=== PATIENT | male | born 1965 | race Caucasian/White ===

== ENCOUNTER 2016-09-23 13:13 | Inpatient (IN) | payer OTHER ==
[~2016-09-23] VITALS: Ht 180.3 cm; Wt 84.7 kg
--- NOTE | 2016-09-23 14:13 | EMERGENCY ROOM VISIT NOTE ---
History First contact with patient: 13:52 Chief Complaint: OTHER COMPLAINT Stated Complaint: CONFUSION History of Present Illness The patient is a 51 year old male who presents to the Emergency Room with complaints of confusion. He was just incarcerated at [facility] on 09/20 due to parole violation. When admitted there he did not know what medications he was on and therefore none were prescribed until he was seen by a physician which has not yet occurred. He has therefore not had any of his usual medications since 09/19/16. He was sent to the ER due to acute confusion possibly due to high ammonia from his stage 4 liver cirrhosis. He is unsure where he was living previous to going to [facility]. He reports previously being treated with multiple medications including anti-depressants ( Effexor around 300 mg), anti-psychotics (unsure which), Keppra (for petit mal seizures), lactulose and rifaximin (for liver cirrhosis and hyperammonemia). He is unsure where he is right now including which State he is in but recognizes the place as a hospital, he is disorientated to year, date and month. Review of Systems See HPI for pertinent positives & negatives. A total of 10 systems reviewed and were otherwise negative. Past Medical/Surgical History Medical Problems: (1) Abdominal hernia (2) Liver cirrhosis (3) Petit mal epilepsy Surgical Problems: (1) Hx of cholecystectomy Social History Smoking Status: Current Every Day Smoker (0.5 pack/day) Smokeless Tobacco Use: No Alcohol Use: none (previous heavy but none for the past 2 years) Drug Use: none Occupation Status: other (incarcerated at [facility]) Current/Historical Medications No Active Prescriptions or Reported Meds Allergies Coded Allergies: No Known Allergies (Unverified , 09/23/16) Physical Exam Vital Signs Date Time Temp Pulse Resp B/P (MAP) Pulse Ox O2 Delivery O2 Flow Rate FiO2 09/23/16 13:30 Room Air 09/23/16 13:27 61 09/23/16 13:21 37.4 62 16 152/98 98 Physical Exam VITAL SIGNS: were reviewed as above GENERAL: no acute distress, lying in bed SKIN: Warm dry and pink, few bruises but otherwise unremarkable examination, no cellulitis on right lower leg but has superficial peeling of his skin. HEAD: Normocephalic and atraumatic EYES: extraocular muscles intact, pupils equal and reactive to light OROPHARYNX: non erythematous, clear and moist NECK: Supple, no adenopathy or meningismus LUNGS: clear to auscultation, no accessory muscle use HEART: Regular rate and rhythm, heart sounds 1+2, soft systolic murmur LUSB ABDOMEN: Soft, no ascites noted on percussion, bowel sounds normal, mild RUQ pain without guarding or rebound tenderness. BACK: no CVA tenderness, no central spinal tenderness EXTREMITIES: Warm and well perfused, right lower extremity increased swelling and pain compared with left (reports possibly chronic after cellulitis but acute worsening). NEUROLOGICALLY: Awake alert and oriented without focal deficit. Cranial nerves 2 -12 intact. Cerebellar testing is within normal limits. There is no nystagmus. There is no facial droop. Speech is clear. Vision is grossly normal. MUSCULOSKELETAL: Good muscle tone. No evidence of trauma. Extensive finger clubbing noted Medical Decision & Procedures ER Provider Diagnostic Interpretation: SINGLE VIEW CHEST CLINICAL HISTORY: Change in mental status. FINDINGS: An AP, portable, upright chest radiograph is obtained. No prior studies are available for comparison at the time of dictation. The examination is degraded by portable technique and patient rotation. The cardiomediastinal silhouette is unremarkable. The lungs and pleural spaces are clear. No pneumothorax is seen. The bony thorax is grossly intact. IMPRESSION: No active disease in the chest. Electronically signed by: Destin Francisco M.D. 09/23/2016 3:02 PM Dictated Date/Time: 09/23/2016 3:01 PM RIGHT LOWER EXTREMITY VENOUS DOPPLER HISTORY: right calf swelling and pitting edema ?DVT COMPARISON STUDY: None. FINDINGS: There is normal compressibility, flow, and augmentation within the right lower extremity deep venous system. IMPRESSION: No DVT within the right lower extremity Electronically signed by: Jonathon Hale M.D. 09/23/2016 3:51 PM Dictated Date/Time: 09/23/2016 3:51 PM Laboratory Results 09/23/16 14:50 Red Blood Count 3.69, Mean Corpuscular Volume 89.4, Mean Corpuscular Hemoglobin 31.2, Mean Corpuscular Hemoglobin Concent 34.8, Mean Platelet Volume 10.3, Neutrophils (%) (Auto) 59.0, Lymphocytes (%) (Auto) 24.1, Monocytes (%) (Auto) 13.0, Eosinophils (%) (Auto) 2.5, Basophils (%) (Auto) 1.4, Neutrophils # (Auto ) 3.83, Lymphocytes # (Auto) 1.56, Monocytes # (Auto) 0.84, Eosinophils # (Auto ) 0.16, Basophils # (Auto) 0.09 09/23/16 13:55 Test 09/23/16 13:55 09/23/16 14:50 09/23/16 14:54 Prothrombin Time 16.1 SECONDS (9.0-12.0) Prothromb Time International Ratio 1.5 (0.9-1.1) Activated Partial Thromboplast Time 48.3 SECONDS (21.0-31.0) Partial Thromboplastin Ratio 1.9 Anion Gap 4.0 mmol/L (3-11) Est Creatinine Clear Calc Drug Dose 129.6 ml/min Estimated GFR () 125.0 Estimated GFR (Non- 107.9 BUN/Creatinine Ratio 10.9 (10-20) Calcium Level 7.7 mg/dl (8.5-10.1) Phosphorus Level 3.4 mg/dl (2.5-4.9) Magnesium Level 2.0 mg/dl (1.8-2.4) Total Bilirubin 1.2 mg/dl (0.2-1) Direct Bilirubin 0.4 mg/dl (0-0.2) Aspartate Amino Transf (AST/SGOT) 100 U/L (15-37) Alanine Aminotransferase (ALT/SGPT) 51 U/L (12-78) Alkaline Phosphatase 75 U/L (45-117) Total Protein 7.5 gm/dl (6.4-8.2) Albumin 2.1 gm/dl (3.4-5.0) White Blood Count 6.48 K/uL (4.8-10.8) Red Blood Count 3.69 M/uL (4.7-6.1) Hemoglobin 11.5 g/dL (14.0-18.0) Hematocrit 33.0 % (42-52) Mean Corpuscular Volume 89.4 fL (80-100) Mean Corpuscular Hemoglobin 31.2 pg (25-34) Mean Corpuscular Hemoglobin Concent 34.8 g/dl (32-36) Platelet Count 90 K/uL (130-400) Mean Platelet Volume 10.3 fL (7.4-10.4) Neutrophils (%) (Auto) 59.0 % Lymphocytes (%) (Auto) 24.1 % Monocytes (%) (Auto) 13.0 % Eosinophils (%) (Auto) 2.5 % Basophils (%) (Auto) 1.4 % Neutrophils # (Auto) 3.83 K/uL (1.4-6.5) Lymphocytes # (Auto) 1.56 K/uL (1.2-3.4) Monocytes # (Auto) 0.84 K/uL (0.11-0.59) Eosinophils # (Auto) 0.16 K/uL (0-0.5) Basophils # (Auto) 0.09 K/uL (0-0.2) RDW Standard Deviation 48.1 fL (36.4-46.3) RDW Coefficient of Variation 14.8 % (11.5-14.5) Immature Granulocyte % (Auto) 0.0 % Immature Granulocyte # (Auto) 0.00 K/uL (0.00-0.02) Platelet Estimate DECREASED Red Blood Cell Morphology Unremarkable Ammonia 70.0 umol/L (11-32) ECG Indication: altered mental status Rate (beats per minute): 57 Rhythm: sinus bradycardia Findings: no acute ischemic change Comparison ECG Date: no prior available ED Course [place] [facility] [place] Calixto 14:20 Unable to obtain previous records from [facility] or [facility]. No previous medication list available. Discussed patient with [facility] hospitalist (Dr Thayer) after lab results and imaging back for assessment for admission for altered mental state at 16:05 Medical Decision Patient presents with acute confusion with Hx of stage 4 liver cirrhosis. Unfortunately previous records are not available despite contacting [facility], [facility] and [email or web address]. Lab work consistent with liver cirrhosis with elevated AST, PTINR, PTT, low Plt. Ammonia raised at 70. Patient was discussed with [facility] Hospitalist who accepted for further management and recommended CT head given unclear history. [place] Drug Monitoring Program Search Results: patient reviewed within database (last controlled substances prescibed in 2014) Impression Primary Impression: Hepatic encephalopathy Additional Impressions: Hyperammonemia Liver cirrhosis Departure Information Dispostion Being Evaluated By Hospitalist Condition FAIR Prescriptions No Active Prescriptions or Reported Meds Patient Instructions My [facility] Resident Tracking Resident Involvement: Resident Care Provided Care Provided: Adult ED Problem Qualifiers
[2016-09-23 14:30] LABS: BUN/CREATININE RATIO 10.9 (10-20); CALCIUM 7.7 mg/dl (8.5-10.1); CREATININE 0.71 mg/dl (0.60-1.40); POTASSIUM 4.5 mmol/L (3.5-5.1)
[2016-09-23 14:33] LABS: PHOSPHORUS 3.4 mg/dl (2.5-4.9)
[2016-09-23 14:35] LABS: INR 1.5 (0.9-1.1); PARTIAL THROMBOPLASTIN RATIO 1.9; PROTHROMBIN TIME (PATIENT) 16.1 SECONDS (9.0-12.0)
--- NOTE | 2016-09-23 15:03 | DIAGNOSTIC IMAGING REPORT ---
SINGLE VIEW CHEST CLINICAL HISTORY: Change in mental status. FINDINGS: An AP, portable, upright chest radiograph is obtained. No prior studies are available for comparison at the time of dictation. The examination is degraded by portable technique and patient rotation. The cardiomediastinal silhouette is unremarkable. The lungs and pleural spaces are clear. No pneumothorax is seen. The bony thorax is grossly intact. IMPRESSION: No active disease in the chest. Electronically signed by: Destin Francisco M.D. 09/23/2016 3:02 PM Dictated Date/Time: 09/23/2016 3:01 PM
[2016-09-23 15:20] LABS: MEAN CELL VOLUME 89.4 fL (80-100); MEAN CORPUSCULAR HEMOGLOBIN 31.2 pg (25-34); MEAN CORPUSCULAR HGB CONC 34.8 g/dl (32-36); MEAN PLATELET VOLUME 10.3 fL (7.4-10.4); PLATELET COUNT 90 K/uL (130-400); RED BLOOD COUNT 3.69 M/uL (4.7-6.1); WHITE BLOOD COUNT 6.48 K/uL (4.8-10.8)
[2016-09-23 15:21] LABS: BASO % 1.4 %; BASO ABS # 0.09 K/uL (0-0.2); COMPLETE YES; EOS % 2.5 %; LYMPH % 24.1 %; LYMPH ABS # 1.56 K/uL (1.2-3.4); PLT ESTIMATE DECREASED
[2016-09-23] MEDS ORDERED: LACTULOSE SYRUP 20 GM/30 ML UDC PO STA (15:43)
--- NOTE | 2016-09-23 15:52 | DIAGNOSTIC IMAGING REPORT ---
RIGHT LOWER EXTREMITY VENOUS DOPPLER HISTORY: right calf swelling and pitting edema ?DVT COMPARISON STUDY: None. FINDINGS: There is normal compressibility, flow, and augmentation within the right lower extremity deep venous system. IMPRESSION: No DVT within the right lower extremity Electronically signed by: Jonathon Hale M.D. 09/23/2016 3:51 PM Dictated Date/Time: 09/23/2016 3:51 PM
[2016-09-23 16:25] VITALS: BP 170/100; PULSE 60; TEMP 37.4; O2SAT 100; Ht 180.3 cm; Wt 84.7 kg
[2016-09-23] MEDS ORDERED: MAGNESIUM HYDROXIDE SUSP 30 ML UDC PO PRN (16:30)
[2016-09-23] MEDS ORDERED: ONDANSETRON INJ 2 MG/ML 2 ML VIAL IV PRN (16:30)
--- NOTE | 2016-09-23 16:48 | History and Physical ---
History & Physical Date & Time of Service: Sep 23, 2016 at 16:37 Chief Complaint: Confusion Primary Care Physician: Cheryl TERRELL History of Present Illness Source: patient Pt is a 51 yo male who presents to the Emergency Room with complaints of confusion [employer]. He was just incarcerated at [facility] on 09/20 due to parole violation. Pt unclear of hx and is a poor historian. Oriented to person and place only. He denies any distress and reports only occasional abd pain and lower left leg joint pain but denies any currently. Pt states he used to be on cogentin, haldol, keppra, effexor but unsure of dosages and when medication was stopped or even if stopped abruptly. Pt reports also being on lactulose too. Upon arrival in ER, pt noted to have elevated ammonia level of 70. Pt does report hx of hep C which he states he has never been treated for. He also has multiple homemade tattoos on bilateral arms. Social History Smoking Status: Current Every Day Smoker (0.5 pack/day x 42 yrs) Smokeless Tobacco Use: No Alcohol Use: heavy Drug Use: none Housing status: other (incarcerated) Occupational Status: other (incarcerated at [facility]) Allergies Coded Allergies: No Known Allergies (Unverified , 09/23/16) Home Medications No Active Prescriptions or Reported Meds Review of Systems Constitutional: + weakness, No fever, No chills, No sweats, No weight loss Respiratory: No cough, No sputum, No wheezing, No shortness of breath, No dyspnea on exertion Cardiovascular: No chest pain, No orthopnea, No PND, No edema Abdomen: No pain, No nausea, No vomiting, No diarrhea Musculoskeletal: + joint pain, + muscle pain, No swelling Genitourinary - Male: No hematuria, No dysuria, No urinary frequency, No urinary urgency Neurologic: + numbness/tingling (arms and legs), No memory loss, No paralysis, No weakness Psychiatric: + depression symptoms, + anxiety Endocrine: No fatigue, No excessive thirst Integumentary: No rash, No itch Physical Exam Vital Signs Date Time Temp Pulse Resp B/P (MAP) Pulse Ox O2 Delivery O2 Flow Rate FiO2 09/23/16 16:18 60 18 170/100 100 09/23/16 15:58 163/107 09/23/16 15:13 56 17 99 09/23/16 14:43 62 9 100 09/23/16 14:13 60 18 100 09/23/16 13:43 55 14 99 09/23/16 13:30 Room Air 09/23/16 13:27 61 09/23/16 13:21 37.4 62 16 152/98 98 09/23/16 13:18 152/95 General Appearance: WD/WN, no apparent distress Head: normocephalic, atraumatic Eyes: normal inspection, PERRL, EOMI Neck: supple, no adenopathy, thyroid normal, no JVD Respiratory/Chest: chest non-tender, lungs clear, normal breath sounds, no respiratory distress Cardiovascular: regular rate, rhythm, no edema, no gallop, no JVD, no murmur Abdomen/GI: normal bowel sounds, non tender, soft, no organomegaly Back: normal inspection, no CVA tenderness, no muscle spasm, normal range of motion Neurologic/Psych: alert, normal mood/affect, + motor weakness (3/5 MS in upper and lower extremities), + disoriented Skin: normal color, warm/dry, no rash Diagnostics Laboratory Results Results Past 24 Hours Test 09/23/16 13:55 09/23/16 14:50 09/23/16 14:54 09/23/16 16:36 Range/Units Prothrombin Time 16.1 9.0-12.0 SECONDS Prothromb Time International Ratio 1.5 0.9-1.1 Activated Partial Thromboplast Time 48.3 21.0-31.0 SECONDS Partial Thromboplastin Ratio 1.9 Sodium Level 144 136-145 mmol/L Potassium Level 4.5 3.5-5.1 mmol/L Chloride Level 112 98-107 mmol/L Carbon Dioxide Level 28 21-32 mmol/L Anion Gap 4.0 3-11 mmol/L Blood Urea Nitrogen 8 7-18 mg/dl Creatinine 0.71 0.60-1.40 mg/dl Est Creatinine Clear Calc Drug Dose 129.6 ml/min Estimated GFR () 125.0 Estimated GFR (Non- 107.9 BUN/Creatinine Ratio 10.9 10-20 Random Glucose 92 70-99 mg/dl Calcium Level 7.7 8.5-10.1 mg/dl Phosphorus Level 3.4 2.5-4.9 mg/dl Magnesium Level 2.0 1.8-2.4 mg/dl Total Bilirubin 1.2 0.2-1 mg/dl Direct Bilirubin 0.4 0-0.2 mg/dl Aspartate Amino Transf (AST/SGOT) 100 15-37 U/L Alanine Aminotransferase (ALT/SGPT) 51 12-78 U/L Alkaline Phosphatase 75 45-117 U/L Total Protein 7.5 6.4-8.2 gm/dl Albumin 2.1 3.4-5.0 gm/dl White Blood Count 6.48 4.8-10.8 K/uL Red Blood Count 3.69 4.7-6.1 M/uL Hemoglobin 11.5 14.0-18.0 g/dL Hematocrit 33.0 42-52 % Mean Corpuscular Volume 89.4 80-100 fL Mean Corpuscular Hemoglobin 31.2 25-34 pg Mean Corpuscular Hemoglobin Concent 34.8 32-36 g/dl Platelet Count 90 130-400 K/uL Mean Platelet Volume 10.3 7.4-10.4 fL Neutrophils (%) (Auto) 59.0 % Lymphocytes (%) (Auto) 24.1 % Monocytes (%) (Auto) 13.0 % Eosinophils (%) (Auto) 2.5 % Basophils (%) (Auto) 1.4 % Neutrophils # (Auto) 3.83 1.4-6.5 K/uL Lymphocytes # (Auto) 1.56 1.2-3.4 K/uL Monocytes # (Auto) 0.84 0.11-0.59 K/uL Eosinophils # (Auto) 0.16 0-0.5 K/uL Basophils # (Auto) 0.09 0-0.2 K/uL RDW Standard Deviation 48.1 36.4-46.3 fL RDW Coefficient of Variation 14.8 11.5-14.5 % Immature Granulocyte % (Auto) 0.0 % Immature Granulocyte # (Auto) 0.00 0.00-0.02 K/uL Platelet Estimate DECREASED Red Blood Cell Morphology Unremarkable Ammonia 70.0 11-32 umol/L Impression Assessment and Plan Pt is a 51 yo male with known hx of hepatitis C who presents to ER from [facility] with altered mental status [employer] Metabolic encephalopathy likely secondary to hyperammonemia in setting of Hep C. Unsure if lactulose was given in half-way as pt was recently admitted and no records available. Will start on lactulose and rifaximin at this time and recheck ammonia level in AM. Will also get CT head without contrast, B12, thiamine, TSH level. Also may be an element of withdrawal as he states he was on keppra, cogentin, effexor, haldol recently. Will need to obtain records. Thrombocytopenia likely from cirrhosis from Hep C, cont to monitor Coagulopathy likely from cirrhosis, cont to monitor INR Protein malnutrition, will start on regular diet DVT ppx with SCDs only due to thrombocytopenia VTE Prophylaxis VTE Risk Assessment Done? Y/N: Yes Risk Level: Moderate
--- NOTE | 2016-09-23 16:51 | DIAGNOSTIC IMAGING REPORT ---
HEAD CT NONCONTRAST CT DOSE: 537.48 mGy.cm HISTORY: altered mental status TECHNIQUE: Multiaxial CT images of the head were performed without the use of intravenous contrast. Automated exposure control was utilized for this study. Comparison: None. Findings: Mild mucosal thickening within the ethmoid air cells. The mastoid air cells are clear. The calvarium and skull base are intact. The ventricles and sulci are within normal limits. There is no mass, hematoma, midline shift, or acute infarct. Impression: No acute intracranial abnormality. Electronically signed by: Jonathon Hale M.D. 09/23/2016 4:49 PM Dictated Date/Time: 09/23/2016 4:47 PM
--- NOTE | 2016-09-23 17:24 | EMERGENCY ROOM VISIT NOTE ---
ED Visit Note First contact with patient: 13:52 Resident Physician Supervision Note: I interviewed and examined the patient. Discussed with Dr. Soler and agree with findings and plan as documented in the note. Any exceptions or clarifications are listed here: [None] Documented By: Ramsey Calixto
[2016-09-23 18:32] VITALS: BP 171/93; PULSE 69; TEMP 37; O2SAT 96
[2016-09-23 19:44] VITALS: BP 160/99; PULSE 59; TEMP 36.9; O2SAT 95
[2016-09-23 20:30] LABS: URINE APPEARANCE CLOUDY (CLEAR); URINE BILIRUBIN NEG (NEG); URINE COLOR DK YELLOW; URINE EPITHELIAL CELL AUTO >30 /lpf (0-5); URINE NITRITE NEG (NEG); URINE SPECIFIC GRAVITY 1.019 (1.000-1.030); UROBILINOGEN NEG (NEG); ZZUR CULT IF INDIC CLEAN CATCH NO
[2016-09-23 20:38] LABS: MANUAL MICROSCOPIC REQUIRED? NO; REVIEW REQ? YES
[2016-09-23 20:41] LABS: URINE PATH CASTS 0-3 GRANULAR CASTS /lpf (0)
[2016-09-23 21:02] LABS: BENZODIAZEPINE, URINE NEG (NEG); COCAINE,URINE NEG (NEG); PHENCYCLIDINE, URINE NEG (NEG)
[2016-09-23] MEDS: LACTULOSE SYRUP 30 GM/45 ML UDP PO SCH (21:13)
[2016-09-23] MEDS: RIFAXIMIN TAB 550 MG TAB PO SCH (21:13)
[2016-09-23] MEDS ORDERED: HEPARIN SOD 5000 UNIT/0.5 ML CARP SQ SCH (22:00)
[2016-09-23 23:36] VITALS: BP 168/97; PULSE 61; TEMP 37.1; O2SAT 96
[2016-09-24] VITALS (9 sets, daily range): BP systolic 123–161; BP diastolic 73–94; PULSE 58–64; TEMP 36.7–37; O2SAT 94–99
[2016-09-24 06:34] LABS: MEAN CELL VOLUME 89.6 fL (80-100); MEAN CORPUSCULAR HEMOGLOBIN 30.5 pg (25-34); MEAN CORPUSCULAR HGB CONC 34.1 g/dl (32-36); MEAN PLATELET VOLUME 10.5 fL (7.4-10.4); PLATELET COUNT 77 K/uL (130-400); RED BLOOD COUNT 3.57 M/uL (4.7-6.1); WHITE BLOOD COUNT 5.79 K/uL (4.8-10.8)
[2016-09-24 06:48] LABS: INR 1.5 (0.9-1.1); PROTHROMBIN TIME (PATIENT) 16.4 SECONDS (9.0-12.0)
[2016-09-24 07:12] LABS: BASO % 0.7 %; BASO ABS # 0.04 K/uL (0-0.2); COMPLETE YES; EOS % 2.4 %; IG% 0.2 %; LYMPH % 30.4 %; LYMPH ABS # 1.76 K/uL (1.2-3.4); MONO % 12.1 %; NEUT % 54.2 %
[2016-09-24 07:13] LABS: LARGE PLATELETS 1+
[2016-09-24 07:31] LABS: ALB/GLOB RATIO 0.4 (0.9-2); BUN/CREATININE RATIO 10.7 (10-20); CALCIUM 7.2 mg/dl (8.5-10.1); CREATININE 0.7 mg/dl (0.60-1.40); POTASSIUM 3.6 mmol/L (3.5-5.1)
[2016-09-24] MEDS: RIFAXIMIN TAB 550 MG TAB PO SCH ×2 (07:41→21:27)
[2016-09-24] MEDS: LACTULOSE SYRUP 30 GM/45 ML UDP PO SCH ×3 (07:41→21:25)
--- NOTE | 2016-09-24 11:21 | Hospitalist Progress Note ---
Hospitalist Progress Note Date of Service Sep 24, 2016. Subjective Pt evaluation today including: conversation w/ patient, physical exam, chart review, lab review, review of studies, review of inpatient medication list Patient reports not getting any sleep last night. He also reports feeling "manic." He does feel more lucid today. He is able to hold conversation. He denies any abdominal discomfort or distention. He denies any nausea. He reports regular bowel movements. He is concerned that he is not getting his typical psychiatric medications. He reports that the shelter just put him on Haldol, Ativan and Cogentin. He is unsure of his outpatient regimen. He has never been treated for hep C. Additional Comments: 6 system review negative. Please see pertinent positives in the history of present illness section. Objective Vital Signs Date Time Temp Pulse Resp B/P (MAP) Pulse Ox O2 Delivery O2 Flow Rate FiO2 09/24/16 08:00 95 Room Air 09/24/16 07:48 36.9 61 18 155/94 (114) 99 Room Air 09/24/16 04:00 Room Air 09/24/16 03:12 36.7 58 20 156/92 (113) 97 Room Air 09/24/16 00:00 Room Air 09/23/16 23:36 37.1 61 20 168/97 (120) 96 Room Air 09/23/16 20:00 Room Air 09/23/16 19:44 36.9 59 16 160/99 (119) 95 Room Air 09/23/16 18:32 37.0 69 18 171/93 (119) 96 Room Air 09/23/16 18:00 74 18 161/106 98 09/23/16 17:48 70 12 96 09/23/16 17:33 70 15 09/23/16 17:32 79 09/23/16 17:18 74 15 09/23/16 17:03 67 15 98 09/23/16 16:49 161/106 09/23/16 16:48 62 21 09/23/16 16:33 56 16 100 09/23/16 16:25 37.4 60 18 170/100 100 Room Air 09/23/16 16:18 60 18 170/100 100 09/23/16 16:18 61 15 100 09/23/16 16:17 170/101 09/23/16 16:03 61 20 100 09/23/16 15:58 163/107 09/23/16 15:13 56 17 99 09/23/16 14:43 62 9 100 09/23/16 14:13 60 18 100 09/23/16 13:43 55 14 99 09/23/16 13:30 Room Air 09/23/16 13:27 61 09/23/16 13:21 37.4 62 16 152/98 98 09/23/16 13:18 152/95 Physical Exam General Appearance: no apparent distress Eyes: EOMI Neck: no JVD Respiratory/Chest: lungs clear Cardiovascular: regular rate, rhythm Abdomen: normal bowel sounds, non tender, soft Extremities: no pedal edema, + pertinent finding (track valle noted on the arms bilaterally.) Neurologic/Psychiatric: no motor/sensory deficits, oriented x 3 Skin: warm/dry Laboratory Results 09/24/16 06:15 Red Blood Count 3.57, Mean Corpuscular Volume 89.6, Mean Corpuscular Hemoglobin 30.5, Mean Corpuscular Hemoglobin Concent 34.1, Mean Platelet Volume 10.5, Neutrophils (%) (Auto) 54.2, Lymphocytes (%) (Auto) 30.4, Monocytes (%) (Auto) 12.1, Eosinophils (%) (Auto) 2.4, Basophils (%) (Auto) 0.7, Neutrophils # (Auto ) 3.14, Lymphocytes # (Auto) 1.76, Monocytes # (Auto) 0.70, Eosinophils # (Auto ) 0.14, Basophils # (Auto) 0.04 09/24/16 06:15 Test 09/23/16 13:55 09/23/16 14:50 09/23/16 17:11 09/23/16 20:20 Activated Partial Thromboplast Time 48.3 SECONDS (21.0-31.0) Partial Thromboplastin Ratio 1.9 Phosphorus Level 3.4 mg/dl (2.5-4.9) Magnesium Level 2.0 mg/dl (1.8-2.4) Direct Bilirubin 0.4 mg/dl (0-0.2) Thyroid Stimulating Hormone (TSH) 2.360 uIu/ml (0.300-4.500) Platelet Estimate DECREASED Red Blood Cell Morphology Unremarkable Vitamin B12 Level > 2000 pg/mL (211-911) Urine Color DK YELLOW Urine Appearance CLOUDY (CLEAR) Urine pH 7.0 (4.5-7.5) Urine Specific [place] 1.019 (1.000-1.030) Urine Protein TRACE (NEG) Urine Glucose (UA) NEG (NEG) Urine Ketones TRACE (NEG) Urine Occult Blood 3+ (NEG) Urine Nitrite NEG (NEG) Urine Bilirubin NEG (NEG) Urine Urobilinogen NEG (NEG) Urine Leukocyte Esterase SMALL (NEG) Urine WBC (Auto) 1-5 /hpf (0-5) Urine RBC (Auto) >30 /hpf (0-4) Urine Hyaline Casts (Auto) 1-5 /lpf (0-5) Urine Epithelial Cells (Auto) >30 /lpf (0-5) Urine Bacteria (Auto) NEG (NEG) Urine Crystals CALCIUM OXALATE (NONE Urine Pathogenic Casts 0-3 GRANULAR CASTS /lpf (0) Urine Opiates Screen NEG (NEG) Urine Methadone, Qualitative NEG (NEG) Urine Barbiturates NEG (NEG) Urine Phencyclidine (PCP) Level NEG (NEG) Ur Amphetamine/Methamphetamine NEG (NEG) MDMA (Ecstasy) Screen NEG (NEG) Urine Benzodiazepines Screen NEG (NEG) Urine Cocaine Metabolite NEG (NEG) Urine Marijuana (THC) NEG (NEG) Test 09/24/16 06:15 White Blood Count 5.79 K/uL (4.8-10.8) Red Blood Count 3.57 M/uL (4.7-6.1) Hemoglobin 10.9 g/dL (14.0-18.0) Hematocrit 32.0 % (42-52) Mean Corpuscular Volume 89.6 fL (80-100) Mean Corpuscular Hemoglobin 30.5 pg (25-34) Mean Corpuscular Hemoglobin Concent 34.1 g/dl (32-36) Platelet Count 77 K/uL (130-400) Mean Platelet Volume 10.5 fL (7.4-10.4) Neutrophils (%) (Auto) 54.2 % Lymphocytes (%) (Auto) 30.4 % Monocytes (%) (Auto) 12.1 % Eosinophils (%) (Auto) 2.4 % Basophils (%) (Auto) 0.7 % Neutrophils # (Auto) 3.14 K/uL (1.4-6.5) Lymphocytes # (Auto) 1.76 K/uL (1.2-3.4) Monocytes # (Auto) 0.70 K/uL (0.11-0.59) Eosinophils # (Auto) 0.14 K/uL (0-0.5) Basophils # (Auto) 0.04 K/uL (0-0.2) RDW Standard Deviation 48.9 fL (36.4-46.3) RDW Coefficient of Variation 15.1 % (11.5-14.5) Immature Granulocyte % (Auto) 0.2 % Immature Granulocyte # (Auto) 0.01 K/uL (0.00-0.02) Large Platelets 1+ Prothrombin Time 16.4 SECONDS (9.0-12.0) Prothromb Time International Ratio 1.5 (0.9-1.1) Anion Gap 5.0 mmol/L (3-11) Est Creatinine Clear Calc Drug Dose 131.4 ml/min Estimated GFR () 125.8 Estimated GFR (Non- 108.5 BUN/Creatinine Ratio 10.7 (10-20) Calcium Level 7.2 mg/dl (8.5-10.1) Total Bilirubin 1.3 mg/dl (0.2-1) Aspartate Amino Transf (AST/SGOT) 91 U/L (15-37) Alanine Aminotransferase (ALT/SGPT) 47 U/L (12-78) Alkaline Phosphatase 71 U/L (45-117) Ammonia 62.0 umol/L (11-32) Troponin I 0.017 ng/ml (0-0.045) Total Protein 7.1 gm/dl (6.4-8.2) Albumin 2.0 gm/dl (3.4-5.0) Globulin 5.1 gm/dl (2.5-4.0) Albumin/Globulin Ratio 0.4 (0.9-2) Date/Time Source Procedure Growth Status 09/23/16 19:25 Nasal MRSA DNA Surveillance Screen - Final Specimen Negative for MRSA by DNA Probe Complete Last 24 Hours Test 09/23/16 13:55 09/23/16 14:50 09/23/16 14:54 09/23/16 17:11 Prothrombin Time 16.1 SECONDS Prothromb Time International Ratio 1.5 Activated Partial Thromboplast Time 48.3 SECONDS Partial Thromboplastin Ratio 1.9 Sodium Level 144 mmol/L Potassium Level 4.5 mmol/L Chloride Level 112 mmol/L Carbon Dioxide Level 28 mmol/L Anion Gap 4.0 mmol/L Blood Urea Nitrogen 8 mg/dl Creatinine 0.71 mg/dl Est Creatinine Clear Calc Drug Dose 129.6 ml/min Estimated GFR () 125.0 Estimated GFR (Non- 107.9 BUN/Creatinine Ratio 10.9 Random Glucose 92 mg/dl Calcium Level 7.7 mg/dl Phosphorus Level 3.4 mg/dl Magnesium Level 2.0 mg/dl Total Bilirubin 1.2 mg/dl Direct Bilirubin 0.4 mg/dl Aspartate Amino Transf (AST/SGOT) 100 U/L Alanine Aminotransferase (ALT/SGPT) 51 U/L Alkaline Phosphatase 75 U/L Total Protein 7.5 gm/dl Albumin 2.1 gm/dl Thyroid Stimulating Hormone (TSH) 2.360 uIu/ml White Blood Count 6.48 K/uL Red Blood Count 3.69 M/uL Hemoglobin 11.5 g/dL Hematocrit 33.0 % Mean Corpuscular Volume 89.4 fL Mean Corpuscular Hemoglobin 31.2 pg Mean Corpuscular Hemoglobin Concent 34.8 g/dl Platelet Count 90 K/uL Mean Platelet Volume 10.3 fL Neutrophils (%) (Auto) 59.0 % Lymphocytes (%) (Auto) 24.1 % Monocytes (%) (Auto) 13.0 % Eosinophils (%) (Auto) 2.5 % Basophils (%) (Auto) 1.4 % Neutrophils # (Auto) 3.83 K/uL Lymphocytes # (Auto) 1.56 K/uL Monocytes # (Auto) 0.84 K/uL Eosinophils # (Auto) 0.16 K/uL Basophils # (Auto) 0.09 K/uL RDW Standard Deviation 48.1 fL RDW Coefficient of Variation 14.8 % Immature Granulocyte % (Auto) 0.0 % Immature Granulocyte # (Auto) 0.00 K/uL Platelet Estimate DECREASED Red Blood Cell Morphology Unremarkable Ammonia 70.0 umol/L Vitamin B12 Level > 2000 pg/mL Test 09/23/16 20:20 09/23/16 22:45 09/24/16 06:15 Urine Color DK YELLOW Urine Appearance CLOUDY Urine pH 7.0 Urine Specific [place] 1.019 Urine Protein TRACE Urine Glucose (UA) NEG Urine Ketones TRACE Urine Occult Blood 3+ Urine Nitrite NEG Urine Bilirubin NEG Urine Urobilinogen NEG Urine Leukocyte Esterase SMALL Urine WBC (Auto) 1-5 /hpf Urine RBC (Auto) >30 /hpf Urine Hyaline Casts (Auto) 1-5 /lpf Urine Epithelial Cells (Auto) >30 /lpf Urine Bacteria (Auto) NEG Urine Crystals CALCIUM OXALATE Urine Pathogenic Casts 0-3 GRANULAR CASTS /lpf Urine Opiates Screen NEG Urine Methadone, Qualitative NEG Urine Barbiturates NEG Urine Phencyclidine (PCP) Level NEG Ur Amphetamine/Methamphetamine NEG MDMA (Ecstasy) Screen NEG Urine Benzodiazepines Screen NEG Urine Cocaine Metabolite NEG Urine Marijuana (THC) NEG Troponin I 0.015 ng/ml 0.017 ng/ml White Blood Count 5.79 K/uL Red Blood Count 3.57 M/uL Hemoglobin 10.9 g/dL Hematocrit 32.0 % Mean Corpuscular Volume 89.6 fL Mean Corpuscular Hemoglobin 30.5 pg Mean Corpuscular Hemoglobin Concent 34.1 g/dl Platelet Count 77 K/uL Mean Platelet Volume 10.5 fL Neutrophils (%) (Auto) 54.2 % Lymphocytes (%) (Auto) 30.4 % Monocytes (%) (Auto) 12.1 % Eosinophils (%) (Auto) 2.4 % Basophils (%) (Auto) 0.7 % Neutrophils # (Auto) 3.14 K/uL Lymphocytes # (Auto) 1.76 K/uL Monocytes # (Auto) 0.70 K/uL Eosinophils # (Auto) 0.14 K/uL Basophils # (Auto) 0.04 K/uL RDW Standard Deviation 48.9 fL RDW Coefficient of Variation 15.1 % Immature Granulocyte % (Auto) 0.2 % Immature Granulocyte # (Auto) 0.01 K/uL Large Platelets 1+ Prothrombin Time 16.4 SECONDS Prothromb Time International Ratio 1.5 Sodium Level 143 mmol/L Potassium Level 3.6 mmol/L Chloride Level 110 mmol/L Carbon Dioxide Level 28 mmol/L Anion Gap 5.0 mmol/L Blood Urea Nitrogen 7 mg/dl Creatinine 0.70 mg/dl Est Creatinine Clear Calc Drug Dose 131.4 ml/min Estimated GFR () 125.8 Estimated GFR (Non- 108.5 BUN/Creatinine Ratio 10.7 Random Glucose 78 mg/dl Calcium Level 7.2 mg/dl Total Bilirubin 1.3 mg/dl Aspartate Amino Transf (AST/SGOT) 91 U/L Alanine Aminotransferase (ALT/SGPT) 47 U/L Alkaline Phosphatase 71 U/L Ammonia 62.0 umol/L Total Protein 7.1 gm/dl Albumin 2.0 gm/dl Globulin 5.1 gm/dl Albumin/Globulin Ratio 0.4 Assessment and Plan Pt is a 51 yo male with known hx of hepatitis C who [facility] 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 Restart outpt regimen: Seroquel 400 mg daily, gabapentin 400 mg TID, Zyprexa 40 mg daily, Effexor 75 mg daily Thrombocytopenia likely from cirrhosis from Hep C-plt improved today Coagulopathy likely from cirrhosis -daily INR Protein malnutrition -encourage po intake DVT ppx with SCDs only due to thrombocytopenia DISPO -stable for transfer off tele -back to [facility] upon d/c This chart was completed in part utilizing [employer] Speech Voice Recognition software. Attempts were made to minimize the grammatical errors, random word insertions, pronoun errors and incomplete sentences. Any formal questions or concerns about the content, text or information contained within the body of this dictation should be directly addressed to the provider for clarification.
--- NOTE | 2016-09-24 12:52 | Gastrointestinal Consultation ---
Gastrointestinal Consultation Date of Consultation: Sep 24, 2016 Attending Physician: Tara Consulting Physician: Vipin Reason for Consultation: elevated ammonia, hep c, cirrhosis History of Present Illness Patient is a 51 year old male w/ PMH significant for liver cirrhosis (hx of ETOH abuse and hep C), chronic hepatitis C, seizure disorder, bipolar disorder who presents through the ED with confusion. Per review of records he was recently incarcerated and has not had any of his typical medications since he arrived. [facility] that he was seen by [facility] clinic in 2013. He has not been seen by any track grinder operator or liver doctor in our system since then. Typically follows with Dr. Robertson in [place] for GI. Pt was seen and evaluated this AM. He is oriented to self and location. He is able to correctly identify year, but not day. He tells me he has not taken any of his medications and he is quite concerned about his mental health. He tells me he has another hernia but was told he was not a surgical candidate given the advancement of his liver disease. He also reports intermittent RUQ and epigastric pain that is sharp yet crampy. This radiates to his lower abdomen. He cannot identify any triggers for this pain. He does not have the pain right now, but has today. No BM today. Has He denies fever, chills, chest pain, SOB, black/bloody stools. Per review of record he has been started on therapy for Hepatitis C on two difference occasions, this was stopped because of active suicidal ideations. There was also a note of noncompliance. I was unable to identify which therapy was used but he tells me he was taking a pill twice daily. He did not undergo a complete transplant evaluation because he did not wish to be listed as a transplant candidate in 2012. Screenings HCC: unknown Varices: unknown Immunization: immunity unknown Decompensations Ascites: none Varices: unknown Hepatic encephalopathy: yes Chest xr: No active disease in the chest. Head CT: negative Lower extremity duplex: No DVT within the right lower extremity EGD: per patient this was normal - he doesn't know when it was done Colon: per patient this was normal w/ hemorrhoids - he doesn't know when it was done Past Medical/Surgical History Medical Problems: (1) Hepatic encephalopathy Status: Acute (2) Hyperammonemia Status: Acute Past Medical History: HCV-1a, cirrhosis, depression, seizure disorder, bipolar disorder, GERD, schizophrenia, ETOH abuse Past Surgical History: hernia repair 2013, cholecystectomy 2012 Social History Smoking Status: Current Every Day Smoker (0.5 pack/day x 42 yrs) Alcohol Use: none (previous heavy but none for the past 2 years) Drug Use: none Occupation Status: other (incarcerated at [employer]) Allergies Coded Allergies: No Known Allergies (Unverified , 09/23/16) Current Medications Home Meds and Scripts Medications Dose Route/Sig Max Daily Dose Days Date Category No Active Prescriptions or Reported Medications Rx Review of Systems Constitutional: No fever, No chills Respiratory: No cough, No shortness of breath Cardiac: No chest pain Abdomen: + pain (mid, RUQ intermittent and sharp but crampy), No nausea, No vomiting, No diarrhea, No constipation, No GI bleeding Physical Exam Date Time Temp Pulse Resp B/P (MAP) Pulse Ox O2 Delivery O2 Flow Rate FiO2 09/24/16 11:11 36.7 58 18 134/73 (93) 99 Room Air 09/24/16 08:00 95 Room Air 09/24/16 07:48 36.9 61 18 155/94 (114) 99 Room Air 09/24/16 04:00 Room Air 09/24/16 03:12 36.7 58 20 156/92 (113) 97 Room Air 09/24/16 00:00 Room Air 09/23/16 23:36 37.1 61 20 168/97 (120) 96 Room Air 09/23/16 20:00 Room Air 09/23/16 19:44 36.9 59 16 160/99 (119) 95 Room Air 09/23/16 18:32 37.0 69 18 171/93 (119) 96 Room Air 09/23/16 18:00 74 18 161/106 98 09/23/16 17:48 70 12 96 09/23/16 17:33 70 15 09/23/16 17:32 79 09/23/16 17:18 74 15 09/23/16 17:03 67 15 98 09/23/16 16:49 161/106 09/23/16 16:48 62 21 09/23/16 16:33 56 16 100 09/23/16 16:25 37.4 60 18 170/100 100 Room Air 09/23/16 16:18 60 18 170/100 100 09/23/16 16:18 61 15 100 09/23/16 16:17 170/101 09/23/16 16:03 61 20 100 09/23/16 15:58 163/107 09/23/16 15:13 56 17 99 09/23/16 14:43 62 9 100 09/23/16 14:13 60 18 100 09/23/16 13:43 55 14 99 09/23/16 13:30 Room Air 09/23/16 13:27 61 09/23/16 13:21 37.4 62 16 152/98 98 09/23/16 13:18 152/95 General Appearance: no apparent distress Eyes: PERRL ENT: hearing grossly normal Neck: supple Respiratory/Chest: lungs clear, normal breath sounds Cardiovascular: regular rate, rhythm, no gallop, no JVD Abdomen: normal bowel sounds, non tender, soft, no organomegaly, no pulsatile mass Neurologic/Psych: alert, normal mood/affect, oriented x 3 Skin: normal color Laboratory Results Last 24 Hours Test 09/23/16 13:55 09/23/16 14:50 09/23/16 14:54 09/23/16 17:11 Prothrombin Time 16.1 SECONDS Prothromb Time International Ratio 1.5 Activated Partial Thromboplast Time 48.3 SECONDS Partial Thromboplastin Ratio 1.9 Sodium Level 144 mmol/L Potassium Level 4.5 mmol/L Chloride Level 112 mmol/L Carbon Dioxide Level 28 mmol/L Anion Gap 4.0 mmol/L Blood Urea Nitrogen 8 mg/dl Creatinine 0.71 mg/dl Est Creatinine Clear Calc Drug Dose 129.6 ml/min Estimated GFR () 125.0 Estimated GFR (Non- 107.9 BUN/Creatinine Ratio 10.9 Random Glucose 92 mg/dl Calcium Level 7.7 mg/dl Phosphorus Level 3.4 mg/dl Magnesium Level 2.0 mg/dl Total Bilirubin 1.2 mg/dl Direct Bilirubin 0.4 mg/dl Aspartate Amino Transf (AST/SGOT) 100 U/L Alanine Aminotransferase (ALT/SGPT) 51 U/L Alkaline Phosphatase 75 U/L Total Protein 7.5 gm/dl Albumin 2.1 gm/dl Thyroid Stimulating Hormone (TSH) 2.360 uIu/ml White Blood Count 6.48 K/uL Red Blood Count 3.69 M/uL Hemoglobin 11.5 g/dL Hematocrit 33.0 % Mean Corpuscular Volume 89.4 fL Mean Corpuscular Hemoglobin 31.2 pg Mean Corpuscular Hemoglobin Concent 34.8 g/dl Platelet Count 90 K/uL Mean Platelet Volume 10.3 fL Neutrophils (%) (Auto) 59.0 % Lymphocytes (%) (Auto) 24.1 % Monocytes (%) (Auto) 13.0 % Eosinophils (%) (Auto) 2.5 % Basophils (%) (Auto) 1.4 % Neutrophils # (Auto) 3.83 K/uL Lymphocytes # (Auto) 1.56 K/uL Monocytes # (Auto) 0.84 K/uL Eosinophils # (Auto) 0.16 K/uL Basophils # (Auto) 0.09 K/uL RDW Standard Deviation 48.1 fL RDW Coefficient of Variation 14.8 % Immature Granulocyte % (Auto) 0.0 % Immature Granulocyte # (Auto) 0.00 K/uL Platelet Estimate DECREASED Red Blood Cell Morphology Unremarkable Ammonia 70.0 umol/L Vitamin B12 Level > 2000 pg/mL Test 09/23/16 20:20 09/23/16 22:45 09/24/16 06:15 Urine Color DK YELLOW Urine Appearance CLOUDY Urine pH 7.0 Urine Specific [place] 1.019 Urine Protein TRACE Urine Glucose (UA) NEG Urine Ketones TRACE Urine Occult Blood 3+ Urine Nitrite NEG Urine Bilirubin NEG Urine Urobilinogen NEG Urine Leukocyte Esterase SMALL Urine WBC (Auto) 1-5 /hpf Urine RBC (Auto) >30 /hpf Urine Hyaline Casts (Auto) 1-5 /lpf Urine Epithelial Cells (Auto) >30 /lpf Urine Bacteria (Auto) NEG Urine Crystals CALCIUM OXALATE Urine Pathogenic Casts 0-3 GRANULAR CASTS /lpf Urine Opiates Screen NEG Urine Methadone, Qualitative NEG Urine Barbiturates NEG Urine Phencyclidine (PCP) Level NEG Ur Amphetamine/Methamphetamine NEG MDMA (Ecstasy) Screen NEG Urine Benzodiazepines Screen NEG Urine Cocaine Metabolite NEG Urine Marijuana (THC) NEG Troponin I 0.015 ng/ml 0.017 ng/ml White Blood Count 5.79 K/uL Red Blood Count 3.57 M/uL Hemoglobin 10.9 g/dL Hematocrit 32.0 % Mean Corpuscular Volume 89.6 fL Mean Corpuscular Hemoglobin 30.5 pg Mean Corpuscular Hemoglobin Concent 34.1 g/dl Platelet Count 77 K/uL Mean Platelet Volume 10.5 fL Neutrophils (%) (Auto) 54.2 % Lymphocytes (%) (Auto) 30.4 % Monocytes (%) (Auto) 12.1 % Eosinophils (%) (Auto) 2.4 % Basophils (%) (Auto) 0.7 % Neutrophils # (Auto) 3.14 K/uL Lymphocytes # (Auto) 1.76 K/uL Monocytes # (Auto) 0.70 K/uL Eosinophils # (Auto) 0.14 K/uL Basophils # (Auto) 0.04 K/uL RDW Standard Deviation 48.9 fL RDW Coefficient of Variation 15.1 % Immature Granulocyte % (Auto) 0.2 % Immature Granulocyte # (Auto) 0.01 K/uL Large Platelets 1+ Prothrombin Time 16.4 SECONDS Prothromb Time International Ratio 1.5 Sodium Level 143 mmol/L Potassium Level 3.6 mmol/L Chloride Level 110 mmol/L Carbon Dioxide Level 28 mmol/L Anion Gap 5.0 mmol/L Blood Urea Nitrogen 7 mg/dl Creatinine 0.70 mg/dl Est Creatinine Clear Calc Drug Dose 131.4 ml/min Estimated GFR () 125.8 Estimated GFR (Non- 108.5 BUN/Creatinine Ratio 10.7 Random Glucose 78 mg/dl Calcium Level 7.2 mg/dl Total Bilirubin 1.3 mg/dl Aspartate Amino Transf (AST/SGOT) 91 U/L Alanine Aminotransferase (ALT/SGPT) 47 U/L Alkaline Phosphatase 71 U/L Ammonia 62.0 umol/L Total Protein 7.1 gm/dl Albumin 2.0 gm/dl Globulin 5.1 gm/dl Albumin/Globulin Ratio 0.4 Impression Patient is a 51 year old male with cirrhosis secondary to ETOH abuse and Hepatitis C (treatment initiated twice but d/c due to therapy side effects and noncompliance) admitted for confusion following disruption of his medication regimen while incarcerated - thought to be hepatic encephalopathy with ammonia of 70. Differentials include withdrawal as he has been without any of his psychiatric medications. On exam he appears well nourished, in no distress, his vitals are stable, abdomen is soft, flat and non-distended without any lower extremity edema or evidence of spontaneous/GI bleeding. Plan Lactulose 30G TID as tolerated - may titrate to 2-3 semi-formed BMs daily Xifaxan 550 BID Resume outpatient medications RUQ US for RUQ/epigastric pain GI will follow liver profile, VA/INR and plt while admitted No current indication to start lasix/spironolactone as there is no evidence of abdominal ascites or lower extremity edema on exam. He is unsure if he is on these medications as an outpatient and I do not have access to any updated records. I will defer additional work up to his primary track grinder operator, he may need to screened for HCC, varices and immunity to Hepatitis A and Hepatitis B by his primary gastroenterology since I do not know when these were last done. MELD: 12 Please call with any questions or concerns I performed a history and physical examination of the patient. I have discussed the patient's case, impression and plan with HUSSAIN Tracy on 09/24/16. Her note reflects my findings and plan. Decompensation related to being off meds. Patient should follow up with regular providers on discharge. Gurvinder Lwe MD
[2016-09-24] MEDS: LISINOPRIL 5 MG TAB PO SCH (14:02)
[2016-09-24] MEDS: VENLAFAXINE HCL XR 75 MG CAPXR PO SCH (14:02)
--- NOTE | 2016-09-24 16:07 | DIAGNOSTIC IMAGING REPORT ---
Limited abdominal ultrasound (LIVER) ABDOMEN LIMITED CLINICAL HISTORY: intermittent RUQ pain, cirrhosis, hep c, s/p cholecysectomy 2012 pain. Cirrhosis. TECHNIQUE: Ultrasound COMPARISON STUDY: None FINDINGS: Prior cholecystectomy. Hepatic cirrhosis. Several varicosities. Common bile duct 4 mm. Right kidney negative for hydronephrosis. IMPRESSION: 1. Hepatic cirrhosis. 2. Prior cholecystectomy. 3. Several patent upper abdominal varicosities. Electronically signed by: Da Webb M.D. 09/24/2016 4:06 PM Dictated Date/Time: 09/24/2016 4:03 PM
[2016-09-24] MEDS: GABAPENTIN 250 MG/5 ML 470 ML BTL PO SCH ×2 (16:23→21:28)
[2016-09-24] MEDS: AMOXICILLIN/CLAVULANATE TAB 875 MG TAB PO SCH (17:43)
[2016-09-24] MEDS ORDERED: OLANZAPINE 20 MG TAB PO SCH (21:00)
[2016-09-24] MEDS ORDERED: QUETIAPINE FUMARATE 200 MG TABCR PO SCH (21:00)
[2016-09-25 07:51] VITALS: BP 116/74; PULSE 78; TEMP 36.4; O2SAT 95
--- NOTE | 2016-09-25 08:00 | Gastroenterology Progress Note ---
Progress Note Date of Service: Sep 25, 2016 Subjective Pt evaluation today including: conversation w/ patient Pt was seen and evaluated this AM. No acute events overnight. This morning he feels tired, weak and confused. He is on lactulose TID and Xifaxan with his ammonia level trending down. He tells me he is having loose stools with the lactulose - 3 BM this morning. He denies any fever, chills, chest pain, SOB, abdominal pain, black/bloody stools. He is oriented to person & location. He is not oriented to date today. Liver US 09/24/16: Prior cholecystectomy. Hepatic cirrhosis. Several varicosities. Common bile duct 4 mm. Right kidney negative for hydronephrosis. Review of Systems Constitutional: + weakness, + fatigue, No fever, No chills Respiratory: No cough, No shortness of breath Cardiac: No chest pain, No edema Abdomen: No pain, No nausea, No vomiting, No diarrhea, No constipation, No GI bleeding Endo: + fatigue Medications Current Inpatient Medications Medications (Trade) Dose Ordered Sig/Beto Route Start Time Stop Time Status Last Admin Dose Admin Magnesium Hydroxide (Milk Of Magnesia Susp) 30 ml Q12H PRN PO 09/23/16 16:30 10/23/16 16:29 Ondansetron HCl (Zofran Inj) 4 mg Q6H PRN IV 09/23/16 16:30 10/23/16 16:29 09/23/16 21:41 4 MG Rifaximin (Xifaxan Tab) 550 mg BID PO 09/23/16 21:00 10/23/16 20:59 09/24/16 21:27 550 MG Quetiapine Fumarate (seroQUEL XR TAB) 400 mg HS PO 09/24/16 21:00 10/24/16 20:59 09/24/16 21:28 400 MG Gabapentin (Neurontin) 400 mg TID PO 09/24/16 14:00 10/24/16 13:59 09/24/16 21:28 400 MG Venlafaxine HCl (effeXOR EXTENDED REL CAP) 75 mg QAM PO 09/24/16 13:30 10/24/16 13:29 09/24/16 14:02 75 MG Olanzapine (Zyprexa Tab) 40 mg HS PO 09/24/16 21:00 10/24/16 20:59 09/24/16 21:27 40 MG Lisinopril (Zestril Tab) 5 mg QAM PO 09/24/16 13:30 10/24/16 13:29 09/24/16 14:02 5 MG Lactulose (Chronulac Syrup) 30 gm TID PO 09/24/16 14:00 10/23/16 20:59 09/24/16 21:25 30 GM Amoxicillin/ Clavulanate Potassium (Augmentin Tab) 875 mg BIDM PO 09/24/16 16:45 10/04/16 16:44 09/24/16 17:43 875 MG Objective Vital Signs Date Time Temp Pulse Resp B/P (MAP) Pulse Ox O2 Delivery O2 Flow Rate FiO2 09/25/16 07:51 36.4 78 18 116/74 (88) 95 Room Air 09/25/16 00:00 Room Air 09/24/16 23:15 37.0 62 18 123/76 (92) 94 Room Air 09/24/16 19:34 36.7 58 18 127/73 (91) 96 Room Air 09/24/16 17:19 36.9 64 18 161/90 (113) 98 Room Air 09/24/16 17:02 Room Air 09/24/16 16:28 36.7 58 18 96 09/24/16 16:00 Room Air 09/24/16 12:00 96 Room Air 09/24/16 11:11 36.7 58 18 134/73 (93) 99 Room Air 09/24/16 08:00 95 Room Air Physical Exam General Appearance: no apparent distress Eyes: PERRL ENT: hearing grossly normal Neck: supple Respiratory/Chest: lungs clear Cardiovascular: regular rate, rhythm, no edema Abdomen: normal bowel sounds, soft, no organomegaly, no pulsatile mass Neurologic/Psych: alert, oriented x 3, + pertinent finding (oriented to self and location) Skin: normal color, no jaundice, warm/dry Laboratory Results Last 24 Hours Test 09/24/16 14:16 09/25/16 04:44 Troponin I 0.017 ng/ml Assessment and Plan Patient is a 51 year old male with cirrhosis secondary to ETOH abuse and Hepatitis C (treatment initiated twice but d/c due to therapy side effects and noncompliance) admitted for confusion following disruption of his medication regimen while incarcerated - thought to be hepatic encephalopathy with ammonia of 70. On exam he appears well nourished, in no distress, his vitals are stable , abdomen is soft, flat and non-distended without any lower extremity edema or evidence of spontaneous/GI bleeding. He was restarted on lactulose/xifaxan with ammonia responding, however this morning he is more confused. GI suggests electrolyte correction by primary team, rule out other causes of confusion, continue hep encephalopathy treatment and to reduce dosing of psychiatric medications as appropriate. Screenings HCC: up to date Varices: upper abdominal varicosities on liver US 09/24/16 --> he should be started on a beta ryan Immunization: immunity unknown Decompensations Ascites: none Varices: yes Hepatic encephalopathy: yes Lactulose 30G TID as tolerated - may titrate to 2-3 semi-formed BMs daily Xifaxan 550 BID Suggest electrolyte correction by primary team Rule out additional causes of confusion Reduce dosing of psychiatric medications Perhaps impaired drug clearance given liver disease LFTs and coags while admitted From a maintenance GI perspective, we suggest to defer nadolol therapy to the discretion of his primary care provider or primary network technology instructor. We suggest a low dose beta ryan (nadolol 40mg daily) given finding of varicosities on RUQ US. Given that this therapy would be life long and monitoring would be needed, this should be started by his primary care provider or his primary network technology instructor. MELD: 12
[2016-09-25 08:21] LABS: HEMATOCRIT 31.7 % (42-52); MEAN CELL VOLUME 89.5 fL (80-100); MEAN CORPUSCULAR HEMOGLOBIN 31.4 pg (25-34); RED BLOOD COUNT 3.54 M/uL (4.7-6.1); WHITE BLOOD COUNT 3.54 K/uL (4.8-10.8)
[2016-09-25 08:30] LABS: INR 1.5 (0.9-1.1); PROTHROMBIN TIME (PATIENT) 16.2 SECONDS (9.0-12.0)
[2016-09-25 08:40] LABS: MEAN PLATELET VOLUME 10.2 fL (7.4-10.4); PLATELET COUNT 55 K/uL (130-400)
[2016-09-25 09:13] LABS: ALB/GLOB RATIO 0.4 (0.9-2); BUN/CREATININE RATIO 11.9 (10-20); CREATININE 0.96 mg/dl (0.60-1.40); POTASSIUM 3.1 mmol/L (3.5-5.1)
[2016-09-25] MEDS: GABAPENTIN 250 MG/5 ML 470 ML BTL PO SCH ×3 (09:16→21:19)
[2016-09-25] MEDS: LACTULOSE SYRUP 30 GM/45 ML UDP PO SCH ×2 (09:16→21:14)
[2016-09-25] MEDS: AMOXICILLIN/CLAVULANATE TAB 875 MG TAB PO SCH ×2 (09:16→16:44)
[2016-09-25] MEDS: RIFAXIMIN TAB 550 MG TAB PO SCH ×2 (09:16→21:15)
[2016-09-25] MEDS: LISINOPRIL 5 MG TAB PO SCH (09:16)
[2016-09-25] MEDS: VENLAFAXINE HCL XR 75 MG CAPXR PO SCH (09:16)
[2016-09-25 09:39] LABS: BASO ABS # 0.07 K/uL (0-0.2); COMPLETE YES; EOS % 3.4 %; IG% 0.3 %; LYMPH % 33.6 %; LYMPH ABS # 1.19 K/uL (1.2-3.4); MONO % 13.8 %; NEUT % 46.9 %
[2016-09-25] MEDS ORDERED: POTASSIUM CHLORIDE 10 MEQ TABCR PO STA (09:42)
[2016-09-25] MEDS ORDERED: POTASSIUM CHLORIDE 10 MEQ TABCR PO ONE (10:00)
[2016-09-25] MEDS ORDERED: POTASSIUM CHLORIDE 20 MEQ TABCR PO ONE (12:38)
--- NOTE | 2016-09-25 13:00 | Hospitalist Progress Note ---
Hospitalist Progress Note Date of Service Sep 25, 2016. Subjective Pt evaluation today including: conversation w/ patient, physical exam, chart review, lab review, review of studies, review of inpatient medication list Patient is very drowsy; therefore, history is somewhat limited this morning. He denies any pain. He has report diarrhea. He denies any fever or chills. No chest pain or pressure. Feels more stable from a mood perspective. Additional Comments: 6 system review performed and negative unless otherwise noted Objective Vital Signs Date Time Temp Pulse Resp B/P (MAP) Pulse Ox O2 Delivery O2 Flow Rate FiO2 09/25/16 08:00 Room Air 09/25/16 07:51 36.4 78 18 116/74 (88) 95 Room Air 09/25/16 00:00 Room Air 09/24/16 23:15 37.0 62 18 123/76 (92) 94 Room Air 09/24/16 19:34 36.7 58 18 127/73 (91) 96 Room Air 09/24/16 17:19 36.9 64 18 161/90 (113) 98 Room Air 09/24/16 17:02 Room Air 09/24/16 16:28 36.7 58 18 96 09/24/16 16:00 Room Air Physical Exam General Appearance: + pertinent finding (very drowsy. Answering most questions appropriately.) Eyes: PERRL, + pertinent finding (horizontal nystagmus noted) Neck: no JVD Respiratory/Chest: lungs clear Cardiovascular: regular rate, rhythm Abdomen: normal bowel sounds, non tender, soft Extremities: + pertinent finding (slight erythema noted to the right lower extremity distal to the knee. No warmth appreciated. No erythema or edema noted in the left lower extremity.) Neurologic/Psychiatric: + pertinent finding (alert and oriented to person and place. Knows his birthday. He follows basic commands. No focal weakness noted. Nystagmus as noted above.) Skin: warm/dry Laboratory Results 09/25/16 08:11 Red Blood Count 3.54, Mean Corpuscular Volume 89.5, Mean Corpuscular Hemoglobin 31.4, Mean Corpuscular Hemoglobin Concent 35.0, Mean Platelet Volume 10.2, Neutrophils (%) (Auto) 46.9, Lymphocytes (%) (Auto) 33.6, Monocytes (%) (Auto) 13.8, Eosinophils (%) (Auto) 3.4, Basophils (%) (Auto) 2.0, Neutrophils # (Auto ) 1.66, Lymphocytes # (Auto) 1.19, Monocytes # (Auto) 0.49, Eosinophils # (Auto ) 0.12, Basophils # (Auto) 0.07 09/25/16 08:11 Test 09/24/16 14:16 09/25/16 08:11 Troponin I 0.017 ng/ml (0-0.045) White Blood Count 3.54 K/uL (4.8-10.8) Red Blood Count 3.54 M/uL (4.7-6.1) Hemoglobin 11.1 g/dL (14.0-18.0) Hematocrit 31.7 % (42-52) Mean Corpuscular Volume 89.5 fL (80-100) Mean Corpuscular Hemoglobin 31.4 pg (25-34) Mean Corpuscular Hemoglobin Concent 35.0 g/dl (32-36) Platelet Count 55 K/uL (130-400) Mean Platelet Volume 10.2 fL (7.4-10.4) Neutrophils (%) (Auto) 46.9 % Lymphocytes (%) (Auto) 33.6 % Monocytes (%) (Auto) 13.8 % Eosinophils (%) (Auto) 3.4 % Basophils (%) (Auto) 2.0 % Neutrophils # (Auto) 1.66 K/uL (1.4-6.5) Lymphocytes # (Auto) 1.19 K/uL (1.2-3.4) Monocytes # (Auto) 0.49 K/uL (0.11-0.59) Eosinophils # (Auto) 0.12 K/uL (0-0.5) Basophils # (Auto) 0.07 K/uL (0-0.2) RDW Standard Deviation 49.1 fL (36.4-46.3) RDW Coefficient of Variation 15.3 % (11.5-14.5) Immature Granulocyte % (Auto) 0.3 % Immature Granulocyte # (Auto) 0.01 K/uL (0.00-0.02) Prothrombin Time 16.2 SECONDS (9.0-12.0) Prothromb Time International Ratio 1.5 (0.9-1.1) Anion Gap 7.0 mmol/L (3-11) Est Creatinine Clear Calc Drug Dose 95.8 ml/min Estimated GFR () 104.9 Estimated GFR (Non- 90.5 BUN/Creatinine Ratio 11.9 (10-20) Calcium Level 8.0 mg/dl (8.5-10.1) Total Bilirubin 1.1 mg/dl (0.2-1) Aspartate Amino Transf (AST/SGOT) 98 U/L (15-37) Alanine Aminotransferase (ALT/SGPT) 53 U/L (12-78) Alkaline Phosphatase 74 U/L (45-117) Ammonia 50.0 umol/L (11-32) Total Protein 7.3 gm/dl (6.4-8.2) Albumin 2.0 gm/dl (3.4-5.0) Globulin 5.3 gm/dl (2.5-4.0) Albumin/Globulin Ratio 0.4 (0.9-2) Folate 8.23 ng/mL (>5.38) Last 24 Hours Test 09/24/16 14:16 09/25/16 08:11 Troponin I 0.017 ng/ml White Blood Count 3.54 K/uL Red Blood Count 3.54 M/uL Hemoglobin 11.1 g/dL Hematocrit 31.7 % Mean Corpuscular Volume 89.5 fL Mean Corpuscular Hemoglobin 31.4 pg Mean Corpuscular Hemoglobin Concent 35.0 g/dl Platelet Count 55 K/uL Mean Platelet Volume 10.2 fL Neutrophils (%) (Auto) 46.9 % Lymphocytes (%) (Auto) 33.6 % Monocytes (%) (Auto) 13.8 % Eosinophils (%) (Auto) 3.4 % Basophils (%) (Auto) 2.0 % Neutrophils # (Auto) 1.66 K/uL Lymphocytes # (Auto) 1.19 K/uL Monocytes # (Auto) 0.49 K/uL Eosinophils # (Auto) 0.12 K/uL Basophils # (Auto) 0.07 K/uL RDW Standard Deviation 49.1 fL RDW Coefficient of Variation 15.3 % Immature Granulocyte % (Auto) 0.3 % Immature Granulocyte # (Auto) 0.01 K/uL Prothrombin Time 16.2 SECONDS Prothromb Time International Ratio 1.5 Sodium Level 145 mmol/L Potassium Level 3.1 mmol/L Chloride Level 113 mmol/L Carbon Dioxide Level 25 mmol/L Anion Gap 7.0 mmol/L Blood Urea Nitrogen 11 mg/dl Creatinine 0.96 mg/dl Est Creatinine Clear Calc Drug Dose 95.8 ml/min Estimated GFR () 104.9 Estimated GFR (Non- 90.5 BUN/Creatinine Ratio 11.9 Random Glucose 109 mg/dl Calcium Level 8.0 mg/dl Total Bilirubin 1.1 mg/dl Aspartate Amino Transf (AST/SGOT) 98 U/L Alanine Aminotransferase (ALT/SGPT) 53 U/L Alkaline Phosphatase 74 U/L Ammonia 50.0 umol/L Total Protein 7.3 gm/dl Albumin 2.0 gm/dl Globulin 5.3 gm/dl Albumin/Globulin Ratio 0.4 Folate 8.23 ng/mL Assessment and Plan Pt is a 51 yo male with known hx of hepatitis C/heavy ETOH use who presents to ER from [facility] 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 Was apparently on transplant list at [facility] a few years back - Ammonia improved but AMS worse today, likely secondary to psych meds. Adjustments will be made as noted below -Decrease lactulose to 30 mg BID given diarrhea -Continue Xifaxan 500 mg po BID -Liver US-->cirrhosis, varices. Start Nadolol 20 mg QD History of bipolar disorder-too sedated today -adjust psych meds as following: decrease zyprexa to 20 mg daily decrease seroquel to 200 mg daily continue effexor at current dose continue gabapentin at current dose -Meds were ordered according to patients last prescriptions at [facility] in [place] Microscopic hematuria-? Hx of kidney stone according to pt -CT abd/pel for stone Thrombocytopenia likely from cirrhosis from Hep C-Plt continue to be low Hypokalemia -repleted Coagulopathy likely from cirrhosis-INR holding at 1.5 Protein malnutrition -encourage po intake DVT ppx with SCDs only due to thrombocytopenia/hypercoagulable state DISPO -back to [facility] upon when stable This chart was completed in part utilizing [employer] Voice Recognition software. Attempts were made to minimize the grammatical errors, random word insertions, pronoun errors and incomplete sentences. Any formal questions or concerns about the content, text or information contained within the body of this dictation should be directly addressed to the provider for clarification.
--- NOTE | 2016-09-25 14:46 | DIAGNOSTIC IMAGING REPORT ---
ABDOMEN AND PELVIS CT WITHOUT CONTRAST CT DOSE: 986.63 mGy.cm HISTORY: Flank pain hematuria r/o stone TECHNIQUE: Multiaxial CT images of the abdomen and pelvis were performed without the use of intravenous and oral contrast according to the standard department stone protocol. COMPARISON STUDY: None. FINDINGS: Lung bases are clear. Cortical scarring of the liver with evidence for prior cholecystectomy. Appearance consistent with that of hepatic cirrhosis. Moderate splenomegaly. Right kidney is negative for hydronephrosis. Left kidney shows mild hydronephrosis with an 8 mm calcification within the central renal pelvis. Several smaller calcifications are identified at the inferior aspect of left kidney. Bowel pattern overall is nonobstructive. Several small reactive mesenteric nodes are present. There is a small periumbilical hernia containing a small loop of bowel. This is a nonobstructive finding. Bladder is midline. There are no contained bladder calcifications. Inguinal regions are unremarkable. IMPRESSION: 1. Findings of hepatic cirrhosis. 2. Trace amount of abdominal and pelvic ascites. 3. Small periumbilical hernia containing a short segment loop of bowel. This is a nonobstructive finding. 4. Several calcifications involving the left renal pelvis with mild fullness of the left renal collecting system. 5. Splenomegaly. Electronically signed by: Da Webb M.D. 09/25/2016 2:44 PM Dictated Date/Time: 09/25/2016 2:37 PM
[2016-09-25 14:57] VITALS: BP 144/87; PULSE 65; TEMP 36.3; O2SAT 99
[2016-09-25] MEDS: OLANZAPINE 20 MG TAB PO SCH (21:14)
[2016-09-25] MEDS: QUETIAPINE FUMARATE 200 MG TABCR PO SCH (21:15)
[2016-09-25 23:54] VITALS: BP 101/67; PULSE 71; TEMP 37.1; O2SAT 98
[2016-09-26 06:09] LABS: HEMATOCRIT 31.9 % (42-52); MEAN CELL VOLUME 91.4 fL (80-100); MEAN CORPUSCULAR HEMOGLOBIN 30.7 pg (25-34); MEAN CORPUSCULAR HGB CONC 33.5 g/dl (32-36); RED BLOOD COUNT 3.49 M/uL (4.7-6.1); WHITE BLOOD COUNT 2.81 K/uL (4.8-10.8)
[2016-09-26 06:11] LABS: BASO % 1.1 %; BASO ABS # 0.03 K/uL (0-0.2); COMPLETE YES; EOS % 2.8 %; IG% 0.4 %; LYMPH % 27.8 %; LYMPH ABS # 0.78 K/uL (1.2-3.4); MEAN PLATELET VOLUME 10.8 fL (7.4-10.4); MONO % 15.3 %; NEUT % 52.6 %; PLATELET COUNT 47 K/uL (130-400)
[2016-09-26 06:15] LABS: INR 1.5 (0.9-1.1); PROTHROMBIN TIME (PATIENT) 16.1 SECONDS (9.0-12.0)
[2016-09-26 06:58] LABS: ALB/GLOB RATIO 0.4 (0.9-2); BUN/CREATININE RATIO 15.3 (10-20); CALCIUM 7.9 mg/dl (8.5-10.1); CREATININE 0.76 mg/dl (0.60-1.40); POTASSIUM 4.1 mmol/L (3.5-5.1)
[2016-09-26 07:47] VITALS: BP 133/83; PULSE 66; TEMP 36.7; O2SAT 99
[2016-09-26] MEDS: LACTULOSE SYRUP 30 GM/45 ML UDP PO SCH ×2 (08:40→19:32)
[2016-09-26] MEDS: VENLAFAXINE HCL XR 75 MG CAPXR PO SCH (08:41)
[2016-09-26] MEDS: LISINOPRIL 5 MG TAB PO SCH (08:42)
[2016-09-26] MEDS: AMOXICILLIN/CLAVULANATE TAB 875 MG TAB PO SCH ×2 (08:42→15:55)
[2016-09-26] MEDS: POTASSIUM CHLORIDE 20 MEQ TABCR PO SCH (08:42)
[2016-09-26] MEDS: RIFAXIMIN TAB 550 MG TAB PO SCH ×2 (08:42→19:34)
[2016-09-26] MEDS: NADOLOL 40 MG TAB PO SCH (08:43)
[2016-09-26] MEDS: GABAPENTIN 250 MG/5 ML 470 ML BTL PO SCH ×3 (08:46→19:33)
[2016-09-26] MEDS ORDERED: NSS + 20MEQ KCL 1000ML 1,000 ML IV SCH (09:00)
[2016-09-26 15:14] VITALS: BP 117/78; PULSE 67; TEMP 36.3; O2SAT 98
--- NOTE | 2016-09-26 16:39 | Hospitalist Progress Note ---
Hospitalist Progress Note Date of Service Sep 26, 2016. Subjective Pt evaluation today including: conversation w/ patient, physical exam, chart review, lab review, review of studies, review of inpatient medication list Patient reports overall feeling better today. He is complaining of copious amount of diarrhea. He denies any dark stool. No abdominal pain or fever. Feeling mentally more stable. He is also feeling more coherent. Additional Comments: 6 system review negative. Please see pertinent positives in the history of present illness section. Objective Vital Signs Date Time Temp Pulse Resp B/P (MAP) Pulse Ox O2 Delivery O2 Flow Rate FiO2 09/26/16 16:00 Room Air 09/26/16 15:14 36.3 67 16 117/78 (91) 98 09/26/16 08:00 Room Air 09/26/16 07:47 36.7 66 16 133/83 (100) 99 09/25/16 23:59 Room Air 09/25/16 23:54 37.1 71 18 101/67 (78) 98 Room Air Physical Exam General Appearance: no apparent distress Eyes: EOMI, + pertinent finding (no nystagmus noted.) Neck: no JVD Respiratory/Chest: lungs clear Cardiovascular: regular rate, rhythm Abdomen: normal bowel sounds, non tender, soft Extremities: non-tender, no pedal edema, + pertinent finding (erythema on the right lower extremity improved.) Neurologic/Psychiatric: no motor/sensory deficits, alert (much more alert.), oriented x 3 Skin: warm/dry Laboratory Results 09/26/16 05:45 Red Blood Count 3.49, Mean Corpuscular Volume 91.4, Mean Corpuscular Hemoglobin 30.7, Mean Corpuscular Hemoglobin Concent 33.5, Mean Platelet Volume 10.8, Neutrophils (%) (Auto) 52.6, Lymphocytes (%) (Auto) 27.8, Monocytes (%) (Auto) 15.3, Eosinophils (%) (Auto) 2.8, Basophils (%) (Auto) 1.1, Neutrophils # (Auto ) 1.48, Lymphocytes # (Auto) 0.78, Monocytes # (Auto) 0.43, Eosinophils # (Auto ) 0.08, Basophils # (Auto) 0.03 09/26/16 05:45 Test 09/26/16 05:45 White Blood Count 2.81 K/uL (4.8-10.8) Red Blood Count 3.49 M/uL (4.7-6.1) Hemoglobin 10.7 g/dL (14.0-18.0) Hematocrit 31.9 % (42-52) Mean Corpuscular Volume 91.4 fL (80-100) Mean Corpuscular Hemoglobin 30.7 pg (25-34) Mean Corpuscular Hemoglobin Concent 33.5 g/dl (32-36) Platelet Count 47 K/uL (130-400) Mean Platelet Volume 10.8 fL (7.4-10.4) Neutrophils (%) (Auto) 52.6 % Lymphocytes (%) (Auto) 27.8 % Monocytes (%) (Auto) 15.3 % Eosinophils (%) (Auto) 2.8 % Basophils (%) (Auto) 1.1 % Neutrophils # (Auto) 1.48 K/uL (1.4-6.5) Lymphocytes # (Auto) 0.78 K/uL (1.2-3.4) Monocytes # (Auto) 0.43 K/uL (0.11-0.59) Eosinophils # (Auto) 0.08 K/uL (0-0.5) Basophils # (Auto) 0.03 K/uL (0-0.2) RDW Standard Deviation 52.6 fL (36.4-46.3) RDW Coefficient of Variation 15.9 % (11.5-14.5) Immature Granulocyte % (Auto) 0.4 % Immature Granulocyte # (Auto) 0.01 K/uL (0.00-0.02) Prothrombin Time 16.1 SECONDS (9.0-12.0) Prothromb Time International Ratio 1.5 (0.9-1.1) Anion Gap 5.0 mmol/L (3-11) Est Creatinine Clear Calc Drug Dose 121.0 ml/min Estimated GFR () 121.6 Estimated GFR (Non- 104.9 BUN/Creatinine Ratio 15.3 (10-20) Calcium Level 7.9 mg/dl (8.5-10.1) Total Bilirubin 0.8 mg/dl (0.2-1) Aspartate Amino Transf (AST/SGOT) 99 U/L (15-37) Alanine Aminotransferase (ALT/SGPT) 54 U/L (12-78) Alkaline Phosphatase 105 U/L (45-117) Ammonia 60.0 umol/L (11-32) Total Protein 6.8 gm/dl (6.4-8.2) Albumin 1.8 gm/dl (3.4-5.0) Globulin 5.0 gm/dl (2.5-4.0) Albumin/Globulin Ratio 0.4 (0.9-2) Date/Time Source Procedure Growth Status 09/26/16 00:00 Stool C.difficile Toxin B Gene (PCR) - Final No C. difficile toxin B gene detected Complete Last 24 Hours Test 09/26/16 05:45 White Blood Count 2.81 K/uL Red Blood Count 3.49 M/uL Hemoglobin 10.7 g/dL Hematocrit 31.9 % Mean Corpuscular Volume 91.4 fL Mean Corpuscular Hemoglobin 30.7 pg Mean Corpuscular Hemoglobin Concent 33.5 g/dl Platelet Count 47 K/uL Mean Platelet Volume 10.8 fL Neutrophils (%) (Auto) 52.6 % Lymphocytes (%) (Auto) 27.8 % Monocytes (%) (Auto) 15.3 % Eosinophils (%) (Auto) 2.8 % Basophils (%) (Auto) 1.1 % Neutrophils # (Auto) 1.48 K/uL Lymphocytes # (Auto) 0.78 K/uL Monocytes # (Auto) 0.43 K/uL Eosinophils # (Auto) 0.08 K/uL Basophils # (Auto) 0.03 K/uL RDW Standard Deviation 52.6 fL RDW Coefficient of Variation 15.9 % Immature Granulocyte % (Auto) 0.4 % Immature Granulocyte # (Auto) 0.01 K/uL Prothrombin Time 16.1 SECONDS Prothromb Time International Ratio 1.5 Sodium Level 148 mmol/L Potassium Level 4.1 mmol/L Chloride Level 116 mmol/L Carbon Dioxide Level 27 mmol/L Anion Gap 5.0 mmol/L Blood Urea Nitrogen 12 mg/dl Creatinine 0.76 mg/dl Est Creatinine Clear Calc Drug Dose 121.0 ml/min Estimated GFR () 121.6 Estimated GFR (Non- 104.9 BUN/Creatinine Ratio 15.3 Random Glucose 81 mg/dl Calcium Level 7.9 mg/dl Total Bilirubin 0.8 mg/dl Aspartate Amino Transf (AST/SGOT) 99 U/L Alanine Aminotransferase (ALT/SGPT) 54 U/L Alkaline Phosphatase 105 U/L Ammonia 60.0 umol/L Total Protein 6.8 gm/dl Albumin 1.8 gm/dl Globulin 5.0 gm/dl Albumin/Globulin Ratio 0.4 Assessment and Plan Pt is a 51 yo male with known hx of hepatitis C/heavy ETOH use who 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 Was apparently on transplant list at [facility] a few years back -Continue lactulose to 30 mg BID -NS + 20 mEq KCl @ 100 cc/hr with diarrhea prevent dehydration -c diff sent as well -Continue Xifaxan 500 mg po BID -Liver US-->cirrhosis, varices. Start Nadolol 20 mg QD per GI History of bipolar disorder-more alert today. No signs of laverne -Continue psych meds as follows: zyprexa to 20 mg daily seroquel to 200 mg daily effexor at current dose gabapentin at current dose Microscopic hematuria-secondary to stone. No signs of UTI -CT abd/pel reviewed -needs f/u with urology as outpt Thrombocytopenia likely from cirrhosis from Hep C-Plt continue to be low -Monitor for signs of bleeding Hypokalemia-resolved Coagulopathy likely from cirrhosis-INR stable at 1.5 Protein malnutrition -encourage po intake DVT ppx with SCDs only due to thrombocytopenia/hypercoagulable state DISPO -back to [facility] upon when stable-->possibly tomorrow This chart was completed in part utilizing [employer] Voice Recognition software. Attempts were made to minimize the grammatical errors, random word insertions, pronoun errors and incomplete sentences. Any formal questions or concerns about the content, text or information contained within the body of this dictation should be directly addressed to the provider for clarification.
[2016-09-26] MEDS: QUETIAPINE FUMARATE 200 MG TABCR PO SCH (19:33)
[2016-09-26] MEDS: OLANZAPINE 20 MG TAB PO SCH (19:34)
[2016-09-26 19:39] VITALS: BP 113/70; PULSE 74; TEMP 36.6; O2SAT 95
[2016-09-26 23:03] VITALS: BP 111/68; PULSE 76; TEMP 36.9; O2SAT 97
[2016-09-27 06:47] LABS: HEMATOCRIT 33.3 % (42-52); MEAN CELL VOLUME 93.3 fL (80-100); MEAN CORPUSCULAR HEMOGLOBIN 31.9 pg (25-34); MEAN CORPUSCULAR HGB CONC 34.2 g/dl (32-36); RED BLOOD COUNT 3.57 M/uL (4.7-6.1); WHITE BLOOD COUNT 3.77 K/uL (4.8-10.8)
[2016-09-27 06:59] LABS: INR 1.4 (0.9-1.1); MEAN PLATELET VOLUME 11.7 fL (7.4-10.4); PLATELET COUNT 49 K/uL (130-400); PROTHROMBIN TIME (PATIENT) 15.5 SECONDS (9.0-12.0)
[2016-09-27 07:14] LABS: CALCIUM 8.4 mg/dl (8.5-10.1)
[2016-09-27 07:15] LABS: BUN/CREATININE RATIO 12.2 (10-20); CREATININE 1.1 mg/dl (0.60-1.40); POTASSIUM 4.2 mmol/L (3.5-5.1)
[2016-09-27 07:18] LABS: ALB/GLOB RATIO 0.4 (0.9-2)
[2016-09-27 07:21] VITALS: BP 107/68; PULSE 83; TEMP 36.3; O2SAT 96
[2016-09-27 07:34] LABS: BASO % 1.3 %; BASO ABS # 0.05 K/uL (0-0.2); COMPLETE YES; EOS % 2.7 %; LYMPH % 31.6 %; LYMPH ABS # 1.19 K/uL (1.2-3.4); MONO % 12.2 %; NEUT % 52.2 %
[2016-09-27] MEDS: POTASSIUM CHLORIDE 20 MEQ TABCR PO SCH (07:44)
[2016-09-27] MEDS: VENLAFAXINE HCL XR 75 MG CAPXR PO SCH (07:44)
[2016-09-27] MEDS: RIFAXIMIN TAB 550 MG TAB PO SCH ×2 (07:45→20:49)
[2016-09-27] MEDS: NADOLOL 40 MG TAB PO SCH (07:45)
[2016-09-27] MEDS: AMOXICILLIN/CLAVULANATE TAB 875 MG TAB PO SCH ×2 (07:45→16:44)
[2016-09-27] MEDS: LACTULOSE SYRUP 30 GM/45 ML UDP PO SCH ×3 (07:46→20:48)
[2016-09-27] MEDS: LISINOPRIL 5 MG TAB PO SCH (07:46)
[2016-09-27 08:00] VITALS: O2SAT 96
[2016-09-27] MEDS: GABAPENTIN 250 MG/5 ML 470 ML BTL PO SCH ×3 (08:36→20:52)
--- NOTE | 2016-09-27 13:39 | Hospitalist Progress Note ---
Hospitalist Progress Note Date of Service Sep 27, 2016. Subjective Pt evaluation today including: conversation w/ patient Patient reports that he feels "off" today. He feels slightly confused. He is still complaining of mild right upper quadrant abdominal pain that is unchanged over the last several months. He is also still complaining of diarrhea. No fever or chills. No nausea. Additional Comments: 6 system review negative. Please see pertinent positives in the history of present illness section. Objective Vital Signs Date Time Temp Pulse Resp B/P (MAP) Pulse Ox O2 Delivery O2 Flow Rate FiO2 09/27/16 08:00 96 Room Air 09/27/16 07:21 36.3 83 16 107/68 (81) 96 09/27/16 00:00 Room Air 09/26/16 23:03 36.9 76 16 111/68 (82) 97 09/26/16 20:00 Room Air 09/26/16 19:39 36.6 74 16 113/70 (84) 95 Room Air 09/26/16 16:00 Room Air 09/26/16 15:14 36.3 67 16 117/78 (91) 98 Physical Exam General Appearance: no apparent distress Eyes: EOMI Neck: no JVD Respiratory/Chest: lungs clear Cardiovascular: regular rate, rhythm Abdomen: normal bowel sounds, soft, + pertinent finding (mild tenderness to palpation in the right upper quadrant) Extremities: non-tender, no pedal edema, + pertinent finding (slight redness on the right lower extremity improving) Neurologic/Psychiatric: alert, + pertinent finding (slow to answer questions today. Answers most questions appropriately.) Skin: warm/dry Laboratory Results 09/27/16 06:33 Red Blood Count 3.57, Mean Corpuscular Volume 93.3, Mean Corpuscular Hemoglobin 31.9, Mean Corpuscular Hemoglobin Concent 34.2, Mean Platelet Volume 11.7, Neutrophils (%) (Auto) 52.2, Lymphocytes (%) (Auto) 31.6, Monocytes (%) (Auto) 12.2, Eosinophils (%) (Auto) 2.7, Basophils (%) (Auto) 1.3, Neutrophils # (Auto ) 1.97, Lymphocytes # (Auto) 1.19, Monocytes # (Auto) 0.46, Eosinophils # (Auto ) 0.10, Basophils # (Auto) 0.05 09/27/16 06:33 Test 09/27/16 06:33 White Blood Count 3.77 K/uL (4.8-10.8) Red Blood Count 3.57 M/uL (4.7-6.1) Hemoglobin 11.4 g/dL (14.0-18.0) Hematocrit 33.3 % (42-52) Mean Corpuscular Volume 93.3 fL (80-100) Mean Corpuscular Hemoglobin 31.9 pg (25-34) Mean Corpuscular Hemoglobin Concent 34.2 g/dl (32-36) Platelet Count 49 K/uL (130-400) Mean Platelet Volume 11.7 fL (7.4-10.4) Neutrophils (%) (Auto) 52.2 % Lymphocytes (%) (Auto) 31.6 % Monocytes (%) (Auto) 12.2 % Eosinophils (%) (Auto) 2.7 % Basophils (%) (Auto) 1.3 % Neutrophils # (Auto) 1.97 K/uL (1.4-6.5) Lymphocytes # (Auto) 1.19 K/uL (1.2-3.4) Monocytes # (Auto) 0.46 K/uL (0.11-0.59) Eosinophils # (Auto) 0.10 K/uL (0-0.5) Basophils # (Auto) 0.05 K/uL (0-0.2) RDW Standard Deviation 54.5 fL (36.4-46.3) RDW Coefficient of Variation 16.2 % (11.5-14.5) Immature Granulocyte % (Auto) 0.0 % Immature Granulocyte # (Auto) 0.00 K/uL (0.00-0.02) Prothrombin Time 15.5 SECONDS (9.0-12.0) Prothromb Time International Ratio 1.4 (0.9-1.1) Anion Gap 6.0 mmol/L (3-11) Est Creatinine Clear Calc Drug Dose 83.6 ml/min Estimated GFR () 89.0 Estimated GFR (Non- 76.8 BUN/Creatinine Ratio 12.2 (10-20) Calcium Level 8.4 mg/dl (8.5-10.1) Total Bilirubin 0.7 mg/dl (0.2-1) Aspartate Amino Transf (AST/SGOT) 80 U/L (15-37) Alanine Aminotransferase (ALT/SGPT) 50 U/L (12-78) Alkaline Phosphatase 88 U/L (45-117) Ammonia 73.0 umol/L (11-32) Total Protein 6.7 gm/dl (6.4-8.2) Albumin 1.8 gm/dl (3.4-5.0) Globulin 4.9 gm/dl (2.5-4.0) Albumin/Globulin Ratio 0.4 (0.9-2) Last 24 Hours Test 09/27/16 06:33 White Blood Count 3.77 K/uL Red Blood Count 3.57 M/uL Hemoglobin 11.4 g/dL Hematocrit 33.3 % Mean Corpuscular Volume 93.3 fL Mean Corpuscular Hemoglobin 31.9 pg Mean Corpuscular Hemoglobin Concent 34.2 g/dl Platelet Count 49 K/uL Mean Platelet Volume 11.7 fL Neutrophils (%) (Auto) 52.2 % Lymphocytes (%) (Auto) 31.6 % Monocytes (%) (Auto) 12.2 % Eosinophils (%) (Auto) 2.7 % Basophils (%) (Auto) 1.3 % Neutrophils # (Auto) 1.97 K/uL Lymphocytes # (Auto) 1.19 K/uL Monocytes # (Auto) 0.46 K/uL Eosinophils # (Auto) 0.10 K/uL Basophils # (Auto) 0.05 K/uL RDW Standard Deviation 54.5 fL RDW Coefficient of Variation 16.2 % Immature Granulocyte % (Auto) 0.0 % Immature Granulocyte # (Auto) 0.00 K/uL Prothrombin Time 15.5 SECONDS Prothromb Time International Ratio 1.4 Sodium Level 145 mmol/L Potassium Level 4.2 mmol/L Chloride Level 113 mmol/L Carbon Dioxide Level 26 mmol/L Anion Gap 6.0 mmol/L Blood Urea Nitrogen 13 mg/dl Creatinine 1.10 mg/dl Est Creatinine Clear Calc Drug Dose 83.6 ml/min Estimated GFR () 89.0 Estimated GFR (Non- 76.8 BUN/Creatinine Ratio 12.2 Random Glucose 98 mg/dl Calcium Level 8.4 mg/dl Total Bilirubin 0.7 mg/dl Aspartate Amino Transf (AST/SGOT) 80 U/L Alanine Aminotransferase (ALT/SGPT) 50 U/L Alkaline Phosphatase 88 U/L Ammonia 73.0 umol/L Total Protein 6.7 gm/dl Albumin 1.8 gm/dl Globulin 4.9 gm/dl Albumin/Globulin Ratio 0.4 Assessment and Plan Pt is a 51 yo male with known hx of hepatitis C/heavy ETOH use who presents to ER from [facility] 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 Was apparently on transplant list at [facility] a few years back -Mental status somewhat off today -Increase lactulose to 30 g po TID given rise in ammonia today -c diff sent for diarrhea and negative -Continue Xifaxan 500 mg po BID -Liver US-->cirrhosis, varices. Started Nadolol 20 mg QD per GI History of bipolar disorder-adjustments made and doing well psychiatrically -Continue psych meds as follows: zyprexa to 20 mg daily seroquel to 200 mg daily effexor at current dose gabapentin at current dose Microscopic hematuria-secondary to stone. No signs of UTI -CT abd/pel reviewed -8 mm stone in the left renal pelvis with mild hydronephrosis -needs f/u with urology as outpt Thrombocytopenia likely from cirrhosis from Hep C- -Monitor for signs of bleeding Hypokalemia-resolved Coagulopathy likely from cirrhosis-INR stable at 1.5 Protein malnutrition -encourage po intake DVT ppx with SCDs only due to thrombocytopenia/hypercoagulable state DISPO -back to [facility] upon when stable-->possibly tomorrow This chart was completed in part utilizing [employer] Speech Voice Recognition software. Attempts were made to minimize the grammatical errors, random word insertions, pronoun errors and incomplete sentences. Any formal questions or concerns about the content, text or information contained within the body of this dictation should be directly addressed to the provider for clarification.
[2016-09-27 14:56] VITALS: BP 110/68; PULSE 70; TEMP 36.7; O2SAT 96
[2016-09-27] MEDS ORDERED: PANTOprazole SOD 40 MG TAB PO STA (18:07)
[2016-09-27] MEDS: OLANZAPINE 20 MG TAB PO SCH (20:49)
[2016-09-27] MEDS: QUETIAPINE FUMARATE 200 MG TABCR PO SCH (20:49)
[2016-09-27 23:25] VITALS: BP 108/62; PULSE 75; TEMP 37; O2SAT 96
[2016-09-28 06:35] LABS: HEMATOCRIT 33.7 % (42-52); MEAN CELL VOLUME 93.1 fL (80-100); MEAN CORPUSCULAR HEMOGLOBIN 29.3 pg (25-34); MEAN CORPUSCULAR HGB CONC 31.5 g/dl (32-36); RED BLOOD COUNT 3.62 M/uL (4.7-6.1); WHITE BLOOD COUNT 3.46 K/uL (4.8-10.8)
[2016-09-28 06:36] LABS: BASO % 1.4 %; BASO ABS # 0.05 K/uL (0-0.2); COMPLETE YES; EOS % 2.9 %; IG% 0.3 %; LYMPH % 33.5 %; LYMPH ABS # 1.16 K/uL (1.2-3.4); MEAN PLATELET VOLUME 11.6 fL (7.4-10.4); MONO % 16.5 %; NEUT % 45.4 %; PLATELET COUNT 42 K/uL (130-400)
[2016-09-28 06:44] LABS: INR 1.4 (0.9-1.1); PROTHROMBIN TIME (PATIENT) 15.2 SECONDS (9.0-12.0)
[2016-09-28 07:02] LABS: BUN/CREATININE RATIO 12.3 (10-20); CALCIUM 7.9 mg/dl (8.5-10.1); CREATININE 1.1 mg/dl (0.60-1.40); POTASSIUM 4.1 mmol/L (3.5-5.1)
[2016-09-28 07:04] LABS: ALB/GLOB RATIO 0.4 (0.9-2)
[2016-09-28 07:07] VITALS: BP 125/74; PULSE 81; TEMP 36.5; O2SAT 97
[2016-09-28 08:00] VITALS: O2SAT 97
[2016-09-28] MEDS: LACTULOSE SYRUP 30 GM/45 ML UDP PO SCH (08:40)
[2016-09-28] MEDS: LISINOPRIL 5 MG TAB PO SCH (08:41)
[2016-09-28] MEDS: VENLAFAXINE HCL XR 75 MG CAPXR PO SCH (08:41)
[2016-09-28] MEDS: POTASSIUM CHLORIDE 20 MEQ TABCR PO SCH (08:41)
[2016-09-28] MEDS: RIFAXIMIN TAB 550 MG TAB PO SCH (08:42)
[2016-09-28] MEDS: NADOLOL 40 MG TAB PO SCH (08:42)
[2016-09-28] MEDS: AMOXICILLIN/CLAVULANATE TAB 875 MG TAB PO SCH (08:42)
[2016-09-28] MEDS: GABAPENTIN 250 MG/5 ML 470 ML BTL PO SCH (08:45)
[2016-09-28] MEDS ORDERED: PANTOprazole SOD 40 MG TAB PO SCH (09:00)
[2016-09-28] MEDS ORDERED: CRG40 PO (09:55)
[2016-09-28] MEDS ORDERED: LCTL45 PO (09:55)
[2016-09-28] MEDS ORDERED: PRT40 PO (09:55)
[2016-09-28] MEDS ORDERED: SRQSR200 PO (09:55)
[2016-09-28] MEDS ORDERED: EFFSR75 PO (09:55)
[2016-09-28] MEDS ORDERED: GABA1SOL4 PO (09:55)
[2016-09-28] MEDS ORDERED: MCRK20 PO (09:55)
[2016-09-28] MEDS ORDERED: ZYP20 PO (09:55)
[2016-09-28] MEDS ORDERED: AMOX1TAB43 PO (09:55)
[2016-09-28] MEDS ORDERED: XFX550 PO (09:55)
[2016-09-28] MEDS ORDERED: LSN5 PO (09:55)
--- NOTE | 2016-09-28 10:03 | Discharge Summary ---
Discharge Summary Date of Service Sep 28, 2016. Discharge Summary Admission Date: Sep 23, 2016 at 16:30 Discharge Date: Sep 28, 2016 Discharge Disposition: Home ([facility] ) Principal Diagnosis: metabolic encephalopathy, cirrhosis Problems/Secondary Diagnoses: Hepatitis C Bipolar disorder Kidney stone Hypertension Thrombocytopenia Procedures: CT abdomen and pelvis IMPRESSION: 1. Findings of hepatic cirrhosis. 2. Trace amount of abdominal and pelvic ascites. 3. Small periumbilical hernia containing a short segment loop of bowel. This is a nonobstructive finding. 4. Several calcifications involving the left renal pelvis with mild fullness of the left renal collecting system. 5. Splenomegaly. Abdominal ultrasound Limited abdominal ultrasound (LIVER) ABDOMEN LIMITED CLINICAL HISTORY: intermittent RUQ pain, cirrhosis, hep c, s/p cholecysectomy 2013 pain. Cirrhosis. TECHNIQUE: Ultrasound COMPARISON STUDY: None FINDINGS: Prior cholecystectomy. Hepatic cirrhosis. Several varicosities. Common bile duct 4 mm. Right kidney negative for hydronephrosis. IMPRESSION: 1. Hepatic cirrhosis. 2. Prior cholecystectomy. 3. Several patent upper abdominal varicosities. Consultations: GI Medication Reconciliation New Medications: Amoxicillin & Pot Clavulanate (Amoxicillin/Clavulanate P) 1 Tab Tab 875 MG PO BIDM for 3 Days, #6 TAB Gabapentin (Gabapentin) 250 Mg/5 Ml Tiffanie 400 MG PO TID for 30 Days, #90 DOSE Lactulose (Lactulose) 30 Gm/45 Ml Syrp 30 GM PO TID for 30 Days, #90 DOSE Lisinopril (Lisinopril) 5 Mg Tab 5 MG PO QAM for 30 Days, #30 TAB Nadolol (Nadolol) 40 Mg Tab 20 MG PO QAM for 30 Days, #15 TAB Olanzapine (Zyprexa) 20 Mg Tab 20 MG PO HS for 30 Days, #60 TAB Pantoprazole (Pantoprazole Sodium) 40 Mg Tab 40 MG PO QAM for 30 Days, #30 TAB Potassium Chloride (Klor-Con M20) 20 Meq Tabcr 20 MEQ PO QAM for 30 Days, #30 TAB Quetiapine Fumarate (Seroquel Xr) 200 Mg Tabcr 200 MG PO HS for 30 Days, #30 TAB Rifaximin (Xifaxan) 550 Mg Tab 550 MG PO BID for 30 Days, #60 TAB Venlafaxine Hcl (Effexor Extended Rel) 75 Mg Capcr 75 MG PO QAM for 30 Days, #30 DOSE Discharge Exam The patient reports feeling fairly well today. Mentally he feels very good. He denies any manic thoughts. He is having mild right upper abdominal pain that is unchanged. He denies any nausea. He is tolerating a diet. He is still complaining of diarrhea. No fever or chills. Review of Systems: Constitutional: No fever Respiratory: No cough, No shortness of breath Cardiovascular: No chest pain Abdomen: + diarrhea, No nausea Genitourinary - Male: No dysuria Physical Exam: General Appearance: no apparent distress Neck: no JVD Cardiovascular: regular rate, rhythm Abdomen / GI: normal bowel sounds, non tender, soft Extremities: no calf tenderness, no pedal edema, + pertinent finding (mild erythema on the right lower extremity is improved) Neurologic/Psychiatric: no motor/sensory deficits, oriented x 3 Skin: warm/dry Hospital Course Pt is a 51 yo male with known hx of hepatitis C/heavy ETOH use who 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 Was apparently on transplant list at [facility] a few years back -Treated with IV fluids, lactulose and Xifaxan, which helped ammonia level trend down -Continue lactulose to 30 g po TID -Continue Xifaxan 500 mg po BID -c diff sent for diarrhea and negative -Liver US-->cirrhosis, varices. Started Nadolol 20 mg QD per GI -Pt should have diarrhea or at least 2 loose BM daily -Recheck LFTs, ammonia level sunday 10/01 -PT NEEDS F/U WITH GI IN 2-4 WEEKS History of bipolar disorder-adjustments made and doing well psychiatrically -Continue psych meds as follows: zyprexa to 20 mg daily seroquel to 200 mg daily effexor at current dose gabapentin at current dose Microscopic hematuria-secondary to stone. No signs of UTI -CT abd/pel reviewed -8 mm stone in the left renal pelvis with mild hydronephrosis -needs f/u with urology as outpt Thrombocytopenia likely from cirrhosis from Hep C- -Monitor for signs of bleeding -recheck CBC 10/01 Hypokalemia-resolved Coagulopathy likely from cirrhosis-INR stable at 1.5 Protein malnutrition -encourage po intake DVT ppx with SCDs only due to thrombocytopenia/hypercoagulable state DISPO -back to [facility] This chart was completed in part utilizing [employer] Speech Voice Recognition software. Attempts were made to minimize the grammatical errors, random word insertions, pronoun errors and incomplete sentences. Any formal questions or concerns about the content, text or information contained within the body of this dictation should be directly addressed to the provider for clarification. Total Time Spent: Greater than 30 minutes This includes examination of the patient, discharge planning, medication reconciliation, and communication with other providers. Discharge Instructions Please refer to the electronic Patient Visit Report (Discharge Instructions) for additional information. Follow-Up GI PCP
--- NOTE | 2016-09-28 10:07 | Discharge Instructions ---
Discharge Instructions Date of Service Sep 28, 2016. Admission Reason for Admission: Hepatic Encephalopathy Hyperammonemia Discharge Discharge Diagnosis / Problem: metabolic encephalopathy secondary to cirrhosis Discharge Goals Goal(s): Therapeutic intervention Activity Recommendations Activity Level: Up Ad Xenia . Additional Information Patient informed of condition: Yes Advance Directives: No DNR: No Level of Care: Other (correctional [place]) Communicable Disease: No Prognosis: Improving Instructions / Follow-Up Instructions / Follow-Up The patient has been treated in the hospital for metabolic encephalopathy secondary to cirrhosis. Please see the discharge summary below for following instructions and medications The patient will need a repeat CBC, CMP and ammonia level drawn on Sunday 10/01 It is important that he have at least 2-3 loose stools daily. 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 Was apparently on transplant list at [facility] a few years back -Treated with IV fluids, lactulose and Xifaxan, which helped ammonia level trend down -Continue lactulose to 30 g po TID -Continue Xifaxan 500 mg po BID -c diff sent for diarrhea and negative -Liver US-->cirrhosis, varices. Started Nadolol 20 mg QD per GI -Pt should have diarrhea or at least 2 loose BM daily -Recheck LFTs, ammonia level sunday 10/01 -PT NEEDS F/U WITH GI IN 2-4 WEEKS History of bipolar disorder-adjustments made and doing well psychiatrically -Continue psych meds as follows: zyprexa to 20 mg daily seroquel to 200 mg daily effexor at current dose gabapentin at current dose Microscopic hematuria-secondary to stone. No signs of UTI -CT abd/pel reviewed -8 mm stone in the left renal pelvis with mild hydronephrosis -needs f/u with urology as outpt Thrombocytopenia likely from cirrhosis from Hep C- -Monitor for signs of bleeding -recheck CBC 10/01 Hypokalemia-resolved Coagulopathy likely from cirrhosis-INR stable at 1.5 Protein malnutrition -encourage po intake DVT ppx with SCDs only due to thrombocytopenia/hypercoagulable state DISPO -back to [facility] This chart was completed in part utilizing [email or web address] Speech Voice Recognition software. Attempts were made to minimize the grammatical errors, random word insertions, pronoun errors and incomplete sentences. Any formal questions or concerns about the content, text or information contained within the body of this dictation should be directly addressed to the provider for clarification. Current Hospital Diet Patient's current hospital diet: Regular Diet Discharge Diet Recommended Diet: Regular Diet Procedures Procedures Performed: CT abdomen and pelvis Ultrasound of the abdomen Pending Studies Studies pending at discharge: no Physician Orders On Transfer POLST Discussion: without POLST completion Laboratory Results 09/28/16 05:23 09/28/16 06:23 Red Blood Count 3.62, Mean Corpuscular Volume 93.1, Mean Corpuscular Hemoglobin 29.3, Mean Corpuscular Hemoglobin Concent 31.5, Mean Platelet Volume 11.6, Neutrophils (%) (Auto) 45.4, Lymphocytes (%) (Auto) 33.5, Monocytes (%) (Auto) 16.5, Eosinophils (%) (Auto) 2.9, Basophils (%) (Auto) 1.4, Neutrophils # (Auto ) 1.57, Lymphocytes # (Auto) 1.16, Monocytes # (Auto) 0.57, Eosinophils # (Auto ) 0.10, Basophils # (Auto) 0.05 Test 09/28/16 05:23 09/28/16 06:23 Anion Gap 6.0 mmol/L (3-11) Est Creatinine Clear Calc Drug Dose 83.6 ml/min Estimated GFR () 89.0 Estimated GFR (Non- 76.8 BUN/Creatinine Ratio 12.3 (10-20) Calcium Level 7.9 mg/dl (8.5-10.1) Total Bilirubin 0.8 mg/dl (0.2-1) Aspartate Amino Transf (AST/SGOT) 74 U/L (15-37) Alanine Aminotransferase (ALT/SGPT) 45 U/L (12-78) Alkaline Phosphatase 88 U/L (45-117) Total Protein 6.6 gm/dl (6.4-8.2) Albumin 1.8 gm/dl (3.4-5.0) Globulin 4.8 gm/dl (2.5-4.0) Albumin/Globulin Ratio 0.4 (0.9-2) White Blood Count 3.46 K/uL (4.8-10.8) Red Blood Count 3.62 M/uL (4.7-6.1) Hemoglobin 10.6 g/dL (14.0-18.0) Hematocrit 33.7 % (42-52) Mean Corpuscular Volume 93.1 fL (80-100) Mean Corpuscular Hemoglobin 29.3 pg (25-34) Mean Corpuscular Hemoglobin Concent 31.5 g/dl (32-36) Platelet Count 42 K/uL (130-400) Mean Platelet Volume 11.6 fL (7.4-10.4) Neutrophils (%) (Auto) 45.4 % Lymphocytes (%) (Auto) 33.5 % Monocytes (%) (Auto) 16.5 % Eosinophils (%) (Auto) 2.9 % Basophils (%) (Auto) 1.4 % Neutrophils # (Auto) 1.57 K/uL (1.4-6.5) Lymphocytes # (Auto) 1.16 K/uL (1.2-3.4) Monocytes # (Auto) 0.57 K/uL (0.11-0.59) Eosinophils # (Auto) 0.10 K/uL (0-0.5) Basophils # (Auto) 0.05 K/uL (0-0.2) RDW Standard Deviation 54.6 fL (36.4-46.3) RDW Coefficient of Variation 16.1 % (11.5-14.5) Immature Granulocyte % (Auto) 0.3 % Immature Granulocyte # (Auto) 0.01 K/uL (0.00-0.02) Prothrombin Time 15.2 SECONDS (9.0-12.0) Prothromb Time International Ratio 1.4 (0.9-1.1) Ammonia 57.0 umol/L (11-32) Medical Emergencies . Who to Call and When: Medical Emergencies: If at any time you feel your situation is an emergency, please call 911 immediately. . Non-Emergent Contact Non-Emergency issues call your: Eyewear Manufacturing Supervisor . . "Provider Documentation" section prepared by Stacy Solares. . Core Measure Problem Core Measures: None
[2016-09-28 10:15] VITALS: BP 125/74; PULSE 81; TEMP 36.5; O2SAT 97
== END 2016-09-28 13:20 | DRG 442 ==
LOC: EDBD → C.EDC 13:17 → C.2T 16:30 → EDBEDREQ 17:17 → ENRESERV 17:33 → C.MED 09-24 16:43
PROVIDERS: ADMIT Hospitalist; ATTEND Hospitalist
DX: K72.90 Hepatic failure, unspecified without coma (principal); E72.20 Disorder of urea cycle metabolism, unspecified; E46 Unspecified protein-calorie malnutrition; F17.200 Nicotine dependence, unspecified, uncomplicated; Z90.49 Acquired absence of other specified parts of digestive tract; K74.60 Unspecified cirrhosis of liver; B19.20 Unspecified viral hepatitis C without hepatic coma; D69.6 Thrombocytopenia, unspecified; F31.9 Bipolar disorder, unspecified

== ENCOUNTER 2016-11-02 11:32 | Emergency (ER) | payer OTHER ==
[~2016-11-02] VITALS: Ht 180.3 cm; Wt 86.4 kg
[~2016-11-02 11:32] MED LIST: AMOX1TAB43 PO; CRG40 PO; EFFSR75 PO; GABA1SOL4 PO; LCTL45 PO; LSN5 PO; MCRK20 PO; PRT40 PO; SRQSR200 PO; XFX550 PO; ZYP20 PO
[2016-11-02 11:35] VITALS: TEMP 36.4; Ht 180.3 cm; Wt 86.4 kg
[2016-11-02 12:36] LABS: HEMATOCRIT 40.7 % (42-52); MEAN CELL VOLUME 93.6 fL (80-100); MEAN CORPUSCULAR HGB CONC 34.2 g/dl (32-36); MEAN PLATELET VOLUME 12.8 fL (7.4-10.4); PLATELET COUNT 54 K/uL (130-400); RED BLOOD COUNT 4.35 M/uL (4.7-6.1); WHITE BLOOD COUNT 5.74 K/uL (4.8-10.8)
[2016-11-02 12:46] LABS: INR 1.2 (0.9-1.1); PARTIAL THROMBOPLASTIN RATIO 1.6; PROTHROMBIN TIME (PATIENT) 13.4 SECONDS (9.0-12.0)
[2016-11-02 12:58] LABS: BUN/CREATININE RATIO 9.6 (10-20); CALCIUM 8.2 mg/dl (8.5-10.1); CREATININE 0.99 mg/dl (0.60-1.40); POTASSIUM 3.7 mmol/L (3.5-5.1)
[2016-11-02] MEDS ORDERED: ONDA4TAB65 PO (12:59)
[2016-11-02] MEDS ORDERED: DICY10CA55 PO (12:59)
[2016-11-02] MEDS ORDERED: RISP2TAB21 PO (12:59)
[2016-11-02] MEDS ORDERED: LACT10SO17 PO (12:59)
[2016-11-02] MEDS ORDERED: VENL75CA PO (12:59)
[2016-11-02] MEDS ORDERED: POTA-74 PO (12:59)
[2016-11-02] MEDS ORDERED: TOPI25TA10 PO (12:59)
[2016-11-02 13:02] LABS: ALB/GLOB RATIO 0.5 (0.9-2); THYROID STIMULATING HORMONE 1.2 uIu/ml (0.300-4.500)
--- NOTE | 2016-11-02 13:04 | DIAGNOSTIC IMAGING REPORT ---
CHEST ONE VIEW PORTABLE CLINICAL HISTORY: Altered mental status. COMPARISON STUDY: Chest radiograph September 23, 2016. FINDINGS: Lung volumes are normal. There is no pneumothorax or pleural effusion. Cardiac size is normal. Mediastinal contours are normal. There is no evidence of pulmonary edema. IMPRESSION: No acute cardiopulmonary findings. Electronically signed by: Zenon Kathleen M.D. 11/02/2016 1:02 PM Dictated Date/Time: 11/02/2016 1:02 PM
[2016-11-02] MEDS ORDERED: LACTULOSE SYRUP 20 GM/30 ML UDC PO STA (13:13)
[2016-11-02] MEDS ORDERED: SODIUM CHLORIDE 0.9% 1000ML 1,000 ML IV ONE (13:15)
--- NOTE | 2016-11-02 13:20 | EMERGENCY ROOM VISIT NOTE ---
History First contact with patient: 13:02 Chief Complaint: ALTERED MENTAL STATUS Stated Complaint: ALTERED MENTAL STATUS Nursing Triage Summary: Confusion, "sometimes I cant speak sentences." Stage 4 cirrohosis, hepatic encephalopathy, no lactulose in 2 days. Abd pain from hernia SCI cheryl inmate History of Present Illness The patient is a 51 year old male who presents to the Emergency Room with complaints of confusion that started this morning. The patient has a history of cirrhosis and hepatic encephalopathy. He reports being off of his lactulose for 2 days. The patient is currently incarcerated. He is unsure why the lactulose was stopped. He denies any other symptoms such as fever, chills, cough, abdominal pain or dysuria. He also notes that he has not had a bowel movement in 2 days. Review of Systems 10 system review performed and negative unless noted in HPI or below Past Medical/Surgical History Medical Problems: (1) Abdominal hernia (2) Liver cirrhosis (3) Petit mal epilepsy Surgical Problems: (1) Hx of cholecystectomy Hepatic encephalopathy Varices Social History Smoking Status: Current Every Day Smoker Alcohol Use: none Drug Use: none Occupation Status: other (incarcerated) Current/Historical Medications Scheduled Dicyclomine Hcl (Bentyl), 20 MG PO TID Lactulose (Chronulac), 60 ML PO QID Lisinopril (Lisinopril), 5 MG PO QAM Nadolol (Nadolol), 20 MG PO QAM Pantoprazole (Pantoprazole Sodium), 40 MG PO QAM Potassium Chloride (Potassium Chloride Er), 2 TABS PO DAILY Rifaximin (Xifaxan), 550 MG PO BID Risperidone (Risperdal), 2 MG PO BID Topiramate (Topamax), 75 MG PO BID Venlafaxine Hcl (Effexor Xr), 1 CAP PO BID Scheduled PRN Ondansetron Hcl (Zofran), 4 MG PO TID PRN for Nausea or Vomiting Allergies Coded Allergies: No Known Allergies (Unverified , 09/23/16) Physical Exam Vital Signs Date Time Temp Pulse Resp B/P (MAP) Pulse Ox O2 Delivery O2 Flow Rate FiO2 11/02/16 16:46 56 18 172/97 98 11/02/16 15:00 57 18 179/99 100 Room Air 11/02/16 13:30 50 18 147/96 100 Room Air 11/02/16 12:27 47 11/02/16 11:35 36.4 51 15 143/92 99 Room Air Physical Exam VITALS: Vitals are noted on the nurse's note and reviewed by myself. Vital signs stable. GENERAL: 51-year-old male, in no acute distress, nondiaphoretic SKIN: The skin was without rashes. No jaundice noticed. HEAD: Normocephalic atraumatic. EYES: Pupils equal round and reactive to light and accommodation. Conjunctivae without injection, sclerae without icterus. Extraocular movements intact. MOUTH: Mucous membranes slightly dry. NECK: S. No JVD. HEART: Regular rate and rhythm without murmurs gallops or rubs. LUNGS: Clear to auscultation bilaterally without wheezes, rales or rhonchi. No accessory muscle use. ABDOMEN: Positive bowel sounds x 4.Soft, mild tenderness to palpation in the epigastric and right upper quadrant. No organomegaly appreciated.. No guarding or rebound tenderness. MUSCULOSKELETAL: No muscle atrophy, erythema, or edema noted. Strength 5/5 throughout. NEURO: Patient was alert and oriented to person place and time. Normal sensation to touch. No focal neurological deficits. Medical Decision & Procedures ER Provider Diagnostic Interpretation: Patient Name: CHIKA CHEEK3 Unit Number: [id number] Dictated: 11/02/161301 Transcribed: 11/02/161301 PHILIP Printed Date/Time: [~ rep prt dt]/[~ rep prt tm] [~ rep ct labl] - [~ rep ct ivnm] [facility] [place] [address] Dictated: 11/02/161301 Transcribed: 11/02/161301 PHILIP Printed Date/Time: [~ rep prt dt]/[~ rep prt tm] [~ rep ct labl] - [~ rep ct ivnm] Patient: CHIKA CHEEK [id number] Address1: [address] [place] [address] [address] Tobias Rec: [id number] Address2: Acct ID: [id number] [facility] Zip: [place] [address] Date: 1965 Sex: M Room/Bed: Ref Phy: Cheryl TERRELL SC: VIET Att Phy: Report #: [id number] Kate Phy: Cheryl TERRELL Test: [id number] Admit Phy: Director Of Curriculum: MEREDITH Interpreting Phy: Zenon Kathleen MD Diagnosis: ALTERED MENTAL STATUS Ordering Phy: ED, PROTOCOL Service Date: 11/02/16 Admit Date: 11/02/16 MNE: PWRSCRIBE CONF: DICTATED BY: Zenon Kathleen MD]] CC: ED,PROTOCOL Quan Gomes D.O. Cheryl TERRELL Endcc: [~ rep ct add3]] CHEST ONE VIEW PORTABLE CLINICAL HISTORY: Altered mental status. COMPARISON STUDY: Chest radiograph September 23, 2016. FINDINGS: Lung volumes are normal. There is no pneumothorax or pleural effusion. Cardiac size is normal. Mediastinal contours are normal. There is no evidence of pulmonary edema. IMPRESSION: No acute cardiopulmonary findings. Electronically signed by: Zenon Kathleen M.D. 11/02/2016 1:02 PM Dictated Date/Time: 11/02/2016 1:02 PM The status of this report is Signed. Draft = Not yet reviewed or approved by Radiologist. Signed = Reviewed and approved by Radiologist. <AttendingPhy></AttendingPhy> <FamilyPhy>SCICehryl</FamilyPhy> <PrimaryPhy>SCI Cheryl</PrimaryPhy> <UnitNumber>[id number]</UnitNumber> <VisitNumber> [id number]</VisitNumber> <PatientName>CHIKA CHEEK [id number]</PatientName> < DateOfBirth>1965</DateOfBirth> <Location>[facility]</Location> <ServiceDate></ServiceDate> <MNE>ESINDI</MNE> <OrderingPhy>ED, PROTOCOL</OrderingPhy> < OrderingPhyMNE>f rep ord dr banks</OrderingPhyMNE> <DictatingPhyMNE>f rep dict dr banks</DictatingPhyMNE> <CCListMNE>f rep ct mne</CCListMNE> <AdmittingPhyMNE>f pt admit dr banks</AdmittingPhyMNE> <AttendingPhyMNE>f pt attend dr banks</ AttendingPhyMNE> <ConsultingPhyMNE>f pt consult dr banks</ConsultingPhyMNE> <FamilyPhyMNE>f pt fam dr banks</FamilyPhyMNE> <OtherPhyMNE>f pt other dr banks</OtherPhyMNE> < PrimaryPhyMNE>f pt prim care dr banks</PrimaryPhyMNE> <ReferringPhyMNE>f pt referring dr banks</ReferringPhyMNE> Patient Name: CHIKA CHEEK [id number] Unit Number: [id number] Dictated: 11/02/161531 Transcribed: 11/02/161531 Printed Date/Time: [~ rep prt dt]/[~ rep prt tm] [~ rep ct labl] - [~ rep ct ivnm] [facility] Radiology Department [place] [id number] Dictated: 11/02/161531 Transcribed: 11/02/161531 Printed Date/Time: [~ rep prt dt]/[~ rep prt tm] [~ rep ct labl] - [~ rep ct ivnm] Patient: CHIKA CHEEK [id number] Address1: [address] [facility] Rec: [id number] Address2: [address] [place] [address] DR Hoang ID: [id number] [facility] Zip: [place] [address] Date: 1965 Sex: M Room/Bed: Ref Phy: Cheryl TERRELL SC: VIET Att Phy: Report #: [id number] Kate Phy: Cheryl TERRELL Test: HWO Admit Phy: Director Of Curriculum: CALLAM Interpreting Phy: Zenon Kathleen MD Diagnosis: ALTERED MENTAL STATUS Ordering Phy: Stacy Solares PA-C Service Date: 11/02/16 Admit Date: 11/02/16 MNE: PWRSCRIBE CONF: DICTATED BY: Zenon Kathleen MD]] CC: Quan Gomes D.O. SCI, Benner Urban, Angela P., PA-C Endcc: [~ rep ct add3]] CT OF THE HEAD WITHOUT CONTRAST CLINICAL HISTORY: Confusion. COMPARISON STUDY: Head CT September 23, 2016. CT DOSE: 729.78 mGycm TECHNIQUE: Helical axial images of the head were obtained without IV contrast. Automated exposure control was utilized for the study. FINDINGS: No acute intracranial hemorrhage, midline shift or mass effect is present. Ventricular system is normal. Basilar cisterns are patent. There are no extra-axial collections. White matter hypodensities are noted. There are no findings to suggest acute dural sinus thrombosis or acute territorial infarct. There are no significant calvarial abnormalities. Visualized portions of the sinuses and mastoid air cells are clear. IMPRESSION: 1. No acute intracranial hemorrhage or mass effect. 2. Suspected subtle white matter hypodensities. These may reflect small vessel disease but are nonspecific. Electronically signed by: Zenon Kathleen M.D. 11/02/2016 3:41 PM Dictated Date/Time: 11/02/2016 3:32 PM The status of this report is Signed. Draft = Not yet reviewed or approved by Radiologist. Signed = Reviewed and approved by Radiologist. <AttendingPhy></AttendingPhy> <FamilyPhy>SCICheryl</FamilyPhy> <PrimaryPhy>SCICheryl</PrimaryPhy> <UnitNumber>[id number]</UnitNumber> <VisitNumber> [id number]</VisitNumber> <PatientName>CHIKA CHEEK [id number]</PatientName> < DateOfBirth>1965</DateOfBirth> <Location>[facility]</Location> <ServiceDate></ServiceDate> <MNE>ESINDI</MNE> <OrderingPhy>Stacy Solares PA-C</ OrderingPhy> <OrderingPhyMNE>f rep ord dr banks</OrderingPhyMNE> <DictatingPhyMNE> f rep dict dr banks</DictatingPhyMNE> <CCListMNE>f rep ct jocelyn</CCListMNE> < AdmittingPhyMNE>f pt admit dr banks</AdmittingPhyMNE> <AttendingPhyMNE>f pt attend dr banks</AttendingPhyMNE> <ConsultingPhyMNE>f pt consult dr banks</ConsultingPhyMNE> <FamilyPhyMNE>f pt fam dr banks</FamilyPhyMNE> <OtherPhyMNE>f pt other dr banks</OtherPhyMNE> < PrimaryPhyMNE>f pt prim care dr banks</PrimaryPhyMNE> <ReferringPhyMNE>f pt referring dr abnks</ReferringPhyMNE> Laboratory Results 11/02/16 12:20 Red Blood Count 4.35, Mean Corpuscular Volume 93.6, Mean Corpuscular Hemoglobin 32.0, Mean Corpuscular Hemoglobin Concent 34.2, Mean Platelet Volume 12.8, Neutrophils (%) (Auto) 54.0, Lymphocytes (%) (Auto) 30.3, Monocytes (%) (Auto) 11.0, Eosinophils (%) (Auto) 3.3, Basophils (%) (Auto) 1.2, Neutrophils # (Auto ) 3.10, Lymphocytes # (Auto) 1.74, Monocytes # (Auto) 0.63, Eosinophils # (Auto ) 0.19, Basophils # (Auto) 0.07 11/02/16 12:20 Test 11/02/16 12:20 11/02/16 13:35 White Blood Count 5.74 K/uL (4.8-10.8) Red Blood Count 4.35 M/uL (4.7-6.1) Hemoglobin 13.9 g/dL (14.0-18.0) Hematocrit 40.7 % (42-52) Mean Corpuscular Volume 93.6 fL (80-100) Mean Corpuscular Hemoglobin 32.0 pg (25-34) Mean Corpuscular Hemoglobin Concent 34.2 g/dl (32-36) Platelet Count 54 K/uL (130-400) Mean Platelet Volume 12.8 fL (7.4-10.4) Neutrophils (%) (Auto) 54.0 % Lymphocytes (%) (Auto) 30.3 % Monocytes (%) (Auto) 11.0 % Eosinophils (%) (Auto) 3.3 % Basophils (%) (Auto) 1.2 % Neutrophils # (Auto) 3.10 K/uL (1.4-6.5) Lymphocytes # (Auto) 1.74 K/uL (1.2-3.4) Monocytes # (Auto) 0.63 K/uL (0.11-0.59) Eosinophils # (Auto) 0.19 K/uL (0-0.5) Basophils # (Auto) 0.07 K/uL (0-0.2) RDW Standard Deviation 48.1 fL (36.4-46.3) RDW Coefficient of Variation 14.1 % (11.5-14.5) Immature Granulocyte % (Auto) 0.2 % Immature Granulocyte # (Auto) 0.01 K/uL (0.00-0.02) Large Platelets 1+ Prothrombin Time 13.4 SECONDS (9.0-12.0) Prothromb Time International Ratio 1.2 (0.9-1.1) Activated Partial Thromboplast Time 40.6 SECONDS (21.0-31.0) Partial Thromboplastin Ratio 1.6 Anion Gap 6.0 mmol/L (3-11) Est Creatinine Clear Calc Drug Dose 92.9 ml/min Estimated GFR () 101.1 Estimated GFR (Non- 87.2 BUN/Creatinine Ratio 9.6 (10-20) Calcium Level 8.2 mg/dl (8.5-10.1) Total Bilirubin 1.0 mg/dl (0.2-1) Aspartate Amino Transf (AST/SGOT) 162 U/L (15-37) Alanine Aminotransferase (ALT/SGPT) 91 U/L (12-78) Alkaline Phosphatase 92 U/L (45-117) Total Protein 7.5 gm/dl (6.4-8.2) Albumin 2.6 gm/dl (3.4-5.0) Globulin 4.9 gm/dl (2.5-4.0) Albumin/Globulin Ratio 0.5 (0.9-2) Thyroid Stimulating Hormone (TSH) 1.200 uIu/ml (0.300-4.500) Chemistry Specimen Hemolysis Ammonia 31.0 umol/L (11-32) Medications Administered Medications (Trade) Dose Ordered Sig/Beto Route Start Time Stop Time Status Last Admin Dose Admin Lactulose (Chronulac Syrup) 30 gm NOW STAT PO 11/02/16 13:13 11/02/16 13:21 DC 11/02/16 13:50 30 GM Sodium Chloride 1,000 ml @ 999 mls/hr Q1H1M ONCE IV 11/02/16 13:15 11/02/16 14:15 DC 11/02/16 13:50 999 MLS/HR ECG Indication: other ED Course Patient was seen and examined Labs were obtained, and a saline lock was established Vitals are reviewed. Patient's blood pressure was slightly elevated. The patient's labs were reviewed. A CT of the head was ordered. The patient was hydrated with 1 L of normal saline. He was also given 1 dose of lactulose. Upon reevaluation, the patient was resting comfortably in bed. We discussed the findings of his workup. He voiced understanding. I reviewed discharge instructions the patient. They voiced understanding and had no further questions. Medical Decision Differential diagnosis: Hepatic encephalopathy, infectious etiology, neurogenic encephalopathy This patient is a 51-year-old male that presented to the emergency department with complaints of confusion that started this morning. The patient reported that they stopped his lactulose in retirement where he resides. Upon review of medical records, the patient was documented being given lactulose 4 times daily. Upon examination, there were no focal neurological deficits. He is alert and oriented to person, place and time. His ammonia level was normal. There are no signs of acute infection. CT of the head did not show any acute abnormalities. He is stable for discharge back to retirement with close follow-up with his physician in the next few days. His blood pressure was mildly elevated. This was noted in his discharge paperwork to be rechecked. Impression Primary Impression: Confusion Subjective confusion Departure Information Referrals Cheryl TERRELL (PCP) Patient Instructions My [facility]
[2016-11-02 13:42] LABS: BASO % 1.2 %; BASO ABS # 0.07 K/uL (0-0.2); COMPLETE YES; EOS % 3.3 %; IG% 0.2 %; LARGE PLATELETS 1+; LYMPH % 30.3 %; LYMPH ABS # 1.74 K/uL (1.2-3.4)
--- NOTE | 2016-11-02 15:42 | DIAGNOSTIC IMAGING REPORT ---
CT OF THE HEAD WITHOUT CONTRAST CLINICAL HISTORY: Confusion. COMPARISON STUDY: Head CT September 23, 2016. CT DOSE: 729.78 mGycm TECHNIQUE: Helical axial images of the head were obtained without IV contrast. Automated exposure control was utilized for the study. FINDINGS: No acute intracranial hemorrhage, midline shift or mass effect is present. Ventricular system is normal. Basilar cisterns are patent. There are no extra-axial collections. White matter hypodensities are noted. There are no findings to suggest acute dural sinus thrombosis or acute territorial infarct. There are no significant calvarial abnormalities. Visualized portions of the sinuses and mastoid air cells are clear. IMPRESSION: 1. No acute intracranial hemorrhage or mass effect. 2. Suspected subtle white matter hypodensities. These may reflect small vessel disease but are nonspecific. Electronically signed by: Zenon Kathleen M.D. 11/02/2016 3:41 PM Dictated Date/Time: 11/02/2016 3:32 PM
[2016-11-02 16:46] VITALS: BP 172/97; PULSE 56; O2SAT 98
== END 2016-11-02 16:47 | disposition home or self-care (01) ==
LOC: EDBD → C.EDB 11:34 → C.EDA 16:47
DX: R41.0 Disorientation, unspecified (principal); K74.60 Unspecified cirrhosis of liver; G40.909 Epilepsy, unspecified, not intractable, without status epilepticus; Z90.49 Acquired absence of other specified parts of digestive tract; F17.210 Nicotine dependence, cigarettes, uncomplicated; Z79.899 Other long term (current) drug therapy

== ENCOUNTER 2016-12-01 11:38 | Emergency (ER) | payer OTHER ==
[~2016-12-01] VITALS: Ht 180.3 cm; Wt 86.0 kg
[~2016-12-01 11:38] MED LIST changes: -AMOX1TAB43 PO; +DICY10CA55 PO; -EFFSR75 PO; -GABA1SOL4 PO; +LACT10SO17 PO; -LCTL45 PO; -MCRK20 PO; +ONDA4TAB65 PO; +POTA-74 PO; +RISP2TAB21 PO; -SRQSR200 PO; +TOPI25TA10 PO; +VENL75CA PO; -ZYP20 PO
[2016-12-01 11:39] VITALS: TEMP 36.4; Ht 180.3 cm; Wt 86.0 kg
[2016-12-01] MEDS ORDERED: CARB1SOL8 OT (12:04)
[2016-12-01] MEDS ORDERED: LISI-729 PO (12:04)
[2016-12-01] MEDS ORDERED: GABA-113 PO (12:04)
[2016-12-01] MEDS ORDERED: NADO20TA PO (12:04)
[2016-12-01] MEDS ORDERED: XFX550 PO (12:04)
[2016-12-01] MEDS ORDERED: OPTIRAY 320 IV PRN (12:15)
[2016-12-01 13:19] LABS: BUN/CREATININE RATIO 9.8 (10-20); CALCIUM 8.3 mg/dl (8.5-10.1); CREATININE 0.87 mg/dl (0.60-1.40); POTASSIUM 3.3 mmol/L (3.5-5.1)
[2016-12-01 13:22] LABS: ALB/GLOB RATIO 0.6 (0.9-2)
[2016-12-01 13:39] LABS: MEAN CELL VOLUME 90.5 fL (80-100); MEAN CORPUSCULAR HGB CONC 35.4 g/dl (32-36); MEAN PLATELET VOLUME 11.8 fL (7.4-10.4); RED BLOOD COUNT 4.09 M/uL (4.7-6.1)
[2016-12-01 13:47] LABS: PLATELET COUNT 39 K/uL (130-400)
[2016-12-01 13:48] LABS: BASO % 0.7 %; BASO ABS # 0.03 K/uL (0-0.2); COMPLETE YES; EOS % 1.9 %; IG% 0.2 %; LYMPH % 21.4 %; MONO % 8.1 %; NEUT % 67.7 %; PLT ESTIMATE DECREASED
--- NOTE | 2016-12-01 13:57 | DIAGNOSTIC IMAGING REPORT ---
ABDOMEN AND PELVIS CT WITH IV CONTRAST CT DOSE: 413.84 mGy.cm HISTORY: Generalized abdominal pain TECHNIQUE: Multiaxial CT images of the abdomen and pelvis were performed following the use of intravenous contrast. A dose lowering technique was utilized adhering to the principles of ALARA. COMPARISON STUDY: Abdomen and pelvis CT 09/25/2016. FINDINGS: The lung bases are essentially clear. No pneumoperitoneum. No pneumatosis. Tiny umbilical hernia containing a knuckle of small bowel. This is decreased in size in the interval. Trace ascites. Cholecystectomy. Cirrhosis, splenomegaly, and upper abdominal varices remain unchanged. The pancreas and adrenal glands enhance normally. Left-sided nephrolithiasis. No hydronephrosis. Normal right kidney. No retroperitoneal lymphadenopathy. Normal bladder. Fluid-filled loops of small bowel. No evidence for bowel obstruction. Moderate stool within the colon. Normal appendix. IMPRESSION: 1. Cirrhosis, splenomegaly, and upper abdominal varices remain unchanged. 2. No bowel wall thickening or obstruction. 3. Left sided nephrolithiasis. No hydronephrosis. 4. Tiny umbilical hernia containing a knuckle of small bowel. This is decreased in size. 5. Trace ascites. Electronically signed by: Jonathon Hale M.D. 12/01/2016 1:56 PM Dictated Date/Time: 12/01/2016 1:48 PM
[2016-12-01 15:26] VITALS: BP 144/72; PULSE 68; O2SAT 93
--- NOTE | 2016-12-03 17:43 | EMERGENCY ROOM VISIT NOTE ---
History First contact with patient: 11:59 Chief Complaint: ABDOMINAL PAIN Stated Complaint: INCARCERATED HERNIA Nursing Triage Summary: pt has hx of hernias, states recently has had post nasal drip and "they came out" c/o abd discomfort and firmness this am given a "shot for pain " at the group home. pt has a hx of liver disease. History of Present Illness The patient is a 51 year old male who presents to the Emergency Room with complaints of abdominal pain and an incarcerated hernia. The patient states he recently had postnasal drip. He was coughing repetitively. He states his apparent umbilical hernias popped out. He states they were a hard and painful. Someone at the [facility] reportedly tried to reduce them but was unsuccessful. He states he was given a pain shot at the group home. He was sent here for incarcerated hernias. At this point his pain is better controlled. He denies any nausea or vomiting. He has been moving his bowels and states he actually moved them prior to coming to the ED. Patient is incarcerated at [facility]. He denies any chest pain or shortness of breath. No other complaints. He does have a history of hepatitis and cirrhosis and has been here in the past for encephalopathy. He states he has been taking his lactulose 3 times a day and thinks that his ammonia level is well controlled. Review of Systems REVIEW OF SYSTEM: HEENT: No dizziness, visual problems, hearing loss, or tinnitus. There is no difficulty swallowing and no oral lesions are present. PULMONARY: No cough, shortness of breath, sputum production or hemoptysis. CARDIOVASCULAR: No chest pain, palpitations, shortness of breath or peripheral edema. GASTROINTESTINAL: No diarrhea, constipation, nausea, vomiting. GENITOURINARY: No dysuria, frequency, urgency or nocturia. NEUROLOGIC: No weakness, muscle tenderness, epilepsy or history of neurological problems. MUSCULOSKELETAL: No history of joint tenderness/swelling. No history of arthritis or arthralgias. SKIN: No rashes or lesions. PSYCHIATRIC: No history of depression or mental illness. ENDOCRINE: No history of diabetes, thyroid disorders, or abnormal hair growth. Past Medical/Surgical History Medical Problems: (1) Abdominal hernia (2) Liver cirrhosis (3) Petit mal epilepsy Surgical Problems: (1) Hx of cholecystectomy Family History Noncontributory. Social History Smoking Status: Current Every Day Smoker Smokeless Tobacco Use: No Alcohol Use: none Drug Use: none Marital Status: single Housing Status: other (incarcerated) Occupation Status: other (incarcerated) Current/Historical Medications Scheduled Carbamide Peroxide (Otic) (Debrox), 5 DROPS OT BID Dicyclomine Hcl (Bentyl), 20 MG PO TID Gabapentin (Neurontin), 300 MG PO TID Lactulose (Chronulac), 60 ML PO QID Lisinopril (Zestril), 5 MG PO QAM Nadolol (Corgard), 20 MG PO QAM Rifaximin (Xifaxan), 550 MG PO BID Allergies Coded Allergies: Acetaminophen (Unverified Allergy, Unknown, UNKNOWN, 12/01/16) NSAIDs (Unverified Allergy, Unknown, UNKNOWN, 12/01/16) Physical Exam Vital Signs Date Time Temp Pulse Resp B/P (MAP) Pulse Ox O2 Delivery O2 Flow Rate FiO2 12/01/16 15:26 68 17 144/72 93 12/01/16 13:24 65 16 141/90 100 Room Air 12/01/16 11:39 36.4 65 18 150/91 99 Pain Rating (0-10): 2.0 Physical Exam Gen.: Well-developed, well-nourished, middle-aged male, in no acute distress. Laying on a bed. Alert and oriented. Skin:Warm and dry with good turgor. No rashes or lesions. No ecchymosis or erythema. The patient is not diaphoretic. No abrasions. Small scar present in the epigastric area. Heart: Heart RRR. No MGR. Peripheral pulses are 2+. Lungs: Lungs are clear to auscultation. No crackles rhonchi or wheezing. Good air movement. The patient is able to take a deep breath. Abdomen: Abdomen was inspected, auscultated, and palpated. Bowel sounds present x 4. Soft, mild periumbilical discomfort to palpation. No hepato- splenomegaly. No masses noted. No rebound. No pain over McBurney's point. No palpable protruding bowel or firm masses. He does have a palpable soft spot in the abdominal wall just to the right of the umbilicus. Genitalia: Normal-appearing genitalia. No palpable hernia in the inguinal canal. No discomfort with palpation around the scrotum. Medical Decision & Procedures ER Provider Diagnostic Interpretation: CT scan imaging of the abdomen and pelvis was obtained using IV contrast. This was read by radiology as negative for incarcerated hernia. his cirrhosis, splenomegaly, and upper abdominal varices remain unchanged. No bowel wall thickening or obstruction. Left-sided nephrolithiasis. No hydronephrosis. Films were reviewed by me. Laboratory Results 12/01/16 12:30 Red Blood Count 4.09, Mean Corpuscular Volume 90.5, Mean Corpuscular Hemoglobin 32.0, Mean Corpuscular Hemoglobin Concent 35.4, Mean Platelet Volume 11.8, Neutrophils (%) (Auto) 67.7, Lymphocytes (%) (Auto) 21.4, Monocytes (%) (Auto) 8.1, Eosinophils (%) (Auto) 1.9, Basophils (%) (Auto) 0.7, Neutrophils # (Auto) 2.84, Lymphocytes # (Auto) 0.90, Monocytes # (Auto) 0.34, Eosinophils # (Auto) 0.08, Basophils # (Auto) 0.03 12/01/16 12:30 Test 12/01/16 12:30 White Blood Count 4.20 K/uL (4.8-10.8) Red Blood Count 4.09 M/uL (4.7-6.1) Hemoglobin 13.1 g/dL (14.0-18.0) Hematocrit 37.0 % (42-52) Mean Corpuscular Volume 90.5 fL (80-100) Mean Corpuscular Hemoglobin 32.0 pg (25-34) Mean Corpuscular Hemoglobin Concent 35.4 g/dl (32-36) Platelet Count 39 K/uL (130-400) Mean Platelet Volume 11.8 fL (7.4-10.4) Neutrophils (%) (Auto) 67.7 % Lymphocytes (%) (Auto) 21.4 % Monocytes (%) (Auto) 8.1 % Eosinophils (%) (Auto) 1.9 % Basophils (%) (Auto) 0.7 % Neutrophils # (Auto) 2.84 K/uL (1.4-6.5) Lymphocytes # (Auto) 0.90 K/uL (1.2-3.4) Monocytes # (Auto) 0.34 K/uL (0.11-0.59) Eosinophils # (Auto) 0.08 K/uL (0-0.5) Basophils # (Auto) 0.03 K/uL (0-0.2) RDW Standard Deviation 43.5 fL (36.4-46.3) RDW Coefficient of Variation 13.3 % (11.5-14.5) Immature Granulocyte % (Auto) 0.2 % Immature Granulocyte # (Auto) 0.01 K/uL (0.00-0.02) Platelet Estimate DECREASED Red Blood Cell Morphology Unremarkable Anion Gap 6.0 mmol/L (3-11) Est Creatinine Clear Calc Drug Dose 105.7 ml/min Estimated GFR () 115.0 Estimated GFR (Non- 99.2 BUN/Creatinine Ratio 9.8 (10-20) Calcium Level 8.3 mg/dl (8.5-10.1) Total Bilirubin 1.1 mg/dl (0.2-1) Aspartate Amino Transf (AST/SGOT) 174 U/L (15-37) Alanine Aminotransferase (ALT/SGPT) 117 U/L (12-78) Alkaline Phosphatase 90 U/L (45-117) Ammonia 53.0 umol/L (11-32) Total Protein 6.7 gm/dl (6.4-8.2) Albumin 2.6 gm/dl (3.4-5.0) Globulin 4.1 gm/dl (2.5-4.0) Albumin/Globulin Ratio 0.6 (0.9-2) Amylase Level 70 U/L (25-115) Lipase 197 U/L (73-393) CBC, chem panel, amylase, lipase, and ammonia level were obtained. Ammonia level is elevated at 53. This is higher than when he was here 4 weeks ago. Mild chronic elevation of LFTs and bilirubin. Potassium is mildly low at 3.3. ED Course Patient was educated regarding today's findings. Conservative care measures were discussed. He is not encephalopathic. I did recommend that he increase his lactulose given that his ammonia level is rising. He is already taking it 3 times per day. Dose will need to be adjusted. In regard to the abdomen, he has no incarcerated hernia at this point. There is no urgent surgical intervention. He may follow-up with general surgery on an outpatient basis. The [facility] may make arrangements. Return to the ED on an as-needed basis. Care plan was discussed with Dr. Ferrer. Medical Decision Possibility of new hernia, incarcerated hernia, bowel obstruction, ankle eyes were considered, among others. Impression Primary Impression: Abdominal hernia Additional Impression: Liver cirrhosis Departure Information Dispostion Home / Self-Care Condition GOOD Forms Call Back Authorization, HOME CARE DOCUMENTATION FORM, IMPORTANT VISIT INFORMATION Patient Instructions [facility] Additional Instructions Follow-up with the [facility] to increase your lactulose-ammonia level has increased from 31 to 53 You may need to see general surgery to fix the umbilical hernia if protrusion continues Return to the ED for any other concerns or acute changes Problem Qualifiers Primary Impression: Abdominal hernia Hernia type: umbilical Obstruction and gangrene presence: without obstruction or gangrene Qualified Codes: K42.9 - Umbilical hernia without obstruction or gangrene Additional Impression: Liver cirrhosis Hepatic cirrhosis type: unspecified hepatic cirrhosis Ascites presence: without ascites Qualified Codes: K74.60 - Unspecified cirrhosis of liver
== END 2016-12-01 15:28 | disposition home or self-care (01) ==
LOC: EDBD 11:40 → C.EDB 11:40 → C.EDC 15:28
DX: K42.9 Umbilical hernia without obstruction or gangrene (principal); K74.60 Unspecified cirrhosis of liver; G40.409 Other generalized epilepsy and epileptic syndromes, not intractable, without status epilepticus; F17.200 Nicotine dependence, unspecified, uncomplicated; Z90.49 Acquired absence of other specified parts of digestive tract; Z79.899 Other long term (current) drug therapy